=== PATIENT | female | born 1955 | race Two or more races ===

== ENCOUNTER 2022-05-10 07:36 | Emergency (ER) | payer MEDICARE, OTHER ==
[~2022-05-10] VITALS: Ht 162.6 cm; Wt 81.6 kg
[2022-05-10 08:55] LABS: Basophils # (auto) 0 10 ^3/uL (0-0.2); Basophils % (auto) 0.7 % (0.0-2.0); Eosinophils # (auto) 0 10 ^3/uL (0-0.8); Eosinophils % (auto) 0.1 % (0.0-7.0); Hematocrit 37.1 % (36.0-46.0); Hemoglobin 12.5 g/dL (12.2-16.2); Lymphocytes # (auto) 0.9 10 ^3/uL (0.4-5.4); Lymphocytes % (auto) 24.3 % (10.0-50.0); Mean Corpuscular Hemoglobin 30.3 pg (28.0-32.0); Mean Corpuscular Hgb Conc. 33.8 g/dL (32.0-36.0); Mean Corpuscular Volume 89.7 fL (80.0-100.0); Monocytes # (auto) 0.3 10 ^3/uL (0-1.3); Neutrophils # (auto) 2.5 10 ^3/uL (1.6-8.6); Neutrophils % (auto) 65.9 % (37.0-80.0); Nucleated Red Blood Cells % 0.1 %; Red Blood Cells 4.14 10^6/uL (4.0-5.20); Red Cell Distribution Width 15.4 % (11.8-14.3); White Blood Cell 3.8 10^3/uL (4.4-10.8)
[2022-05-10 09:08] LABS: Albumin 2.8 g/dL (3.4-5.0); Calcium 8.4 mg/dL (8.5-10.1); Magnesium 2.6 mg/dL (1.6-2.6); Potassium 3.9 mmol/L (3.5-5.1)
[2022-05-10 09:09] LABS: INR 3.07 (0.9-1.15); Partial Thromboplastin Time 43.2 sec (23.6-33.0)
[2022-05-10 09:16] LABS: BUN/Creatinine Ratio 28.2; Bilirubin, Total 0.6 mg/dL (0.2-1.0); Total Protein 5.9 g/dL (6.4-8.2)
[2022-05-10] MEDS ORDERED: SODIUM CHLORIDE 0.9% 1,000 ML IV ONE (10:45)
[2022-05-10] MEDS ORDERED: ASPirin 81 mg TAB PO ONE (10:45)
[2022-05-10 11:24] LABS: Urine Bacteria NONE SEEN /hpf (None Seen); Urine Blood Negative /uL (Negative); Urine Specific Gravity 1.017 (1.001-1.035); Urine WBC 2 /hpf (0 - 5)
[2022-05-10 13:00] VITALS: BP 107/51
== END 2022-05-10 14:11 | disposition home or self-care (01) ==
LOC: ER 07:36
DX: R07.89 Other chest pain (principal); T65.91XA Toxic effect of unspecified substance, accidental (unintentional), initial encounter; E44.0 Moderate protein-calorie malnutrition; E11.9 Type 2 diabetes mellitus without complications; I11.0 Hypertensive heart disease with heart failure; I50.9 Heart failure, unspecified; I48.20 Chronic atrial fibrillation, unspecified; Z95.0 Presence of cardiac pacemaker; Z68.30 Body mass index [BMI] 30.0-30.9, adult; Y92.89 Other specified places as the place of occurrence of the external cause
CPT/HCPCS: 36415; 71045; 80053; 81001; 82962; 83735; 83880; 84443; 84484; 85025; 85379; 85610; 85730; 93005; 96360; 96361; 99285; J7030

== ENCOUNTER → 2023-03-27 | Outpatient (CLI) | payer OTHER ==
[~2023-03-27] MED LIST: FURO1TAB31 PO; GABA100C9 PO; ISOS1TAB28 PO; METO-289 PO; OMEP20TA PO; OXYB5TAB24 PO; PARO30TA99 PO; WARF2TAB49 PO
[2023-03-27 10:50] LABS: Basophils # (auto) 0 10 ^3/uL (0-0.2); Basophils % (auto) 0.8 % (0.0-2.0); Eosinophils # (auto) 0 10 ^3/uL (0-0.8); Eosinophils % (auto) 0.1 % (0.0-7.0); Hematocrit 43.3 % (36.0-46.0); Hemoglobin 14.5 g/dL (12.2-16.2); Lymphocytes # (auto) 0.9 10 ^3/uL (0.4-5.4); Mean Corpuscular Hemoglobin 29.2 pg (28.0-32.0); Mean Corpuscular Hgb Conc. 33.6 g/dL (32.0-36.0); Mean Corpuscular Volume 87.1 fL (80.0-100.0); Monocytes # (auto) 0.4 10 ^3/uL (0-1.3); Monocytes % (auto) 8.4 % (0.0-12.0); Neutrophils % (auto) 69.7 % (37.0-80.0); Nucleated Red Blood Cells % 0.2 %; Red Blood Cells 4.97 10^6/uL (4.0-5.20); Red Cell Distribution Width 15.8 % (11.8-14.3); White Blood Cell 4.3 10^3/uL (4.4-10.8)
[2023-03-27 10:59] LABS: Urine Bacteria FEW /hpf (None Seen); Urine Blood Negative /uL (Negative); Urine Specific Gravity 1.016 (1.001-1.035); Urine WBC 8 /hpf (0 - 5)
[2023-03-27 11:42] LABS: Albumin 2.9 g/dL (3.4-5.0); Potassium 4.6 mmol/L (3.5-5.1); Uric Acid 4.8 mg/dL (2.6-6.0)
[2023-03-27 11:47] LABS: BUN/Creatinine Ratio 23.9 (10.0-20.0); Bilirubin, Total 0.6 mg/dL (0.2-1.0); Total Protein 6.4 g/dL (6.4-8.2)
== END | disposition home or self-care (01) ==
LOC: LAB 10:34
PROVIDERS: ATTEND Internal Medicine
DX: E61.2 Magnesium deficiency (principal); R68.89 Other general symptoms and signs; E79.0 Hyperuricemia without signs of inflammatory arthritis and tophaceous disease; R94.6 Abnormal results of thyroid function studies; E55.9 Vitamin D deficiency, unspecified; R82.998 Other abnormal findings in urine; R82.79 Other abnormal findings on microbiological examination of urine; D51.9 Vitamin B12 deficiency anemia, unspecified; R82.90 Unspecified abnormal findings in urine; E78.49 Other hyperlipidemia; R73.09 Other abnormal glucose
CPT/HCPCS: 36415; 80053; 80061; 81001; 82306; 82607; 83036; 83735; 84443; 84550; 85025; 87086

== ENCOUNTER → 2023-06-29 | Outpatient (CLI) | payer OTHER ==
[~2023-06-29] MED LIST changes: +GABA-1308 PO; -GABA100C9 PO; -WARF2TAB49 PO; +WARF4TAB69 PO
[2023-06-29 12:30] LABS: Basophils # (auto) 0 10 ^3/uL (0-0.2); Basophils % (auto) 0.7 % (0.0-2.0); Eosinophils # (auto) 0 10 ^3/uL (0-0.8); Eosinophils % (auto) 0.2 % (0.0-7.0); Hematocrit 43.3 % (36.0-46.0); Lymphocytes # (auto) 0.9 10 ^3/uL (0.4-5.4); Mean Corpuscular Hemoglobin 28.9 pg (28.0-32.0); Mean Corpuscular Hgb Conc. 32.4 g/dL (32.0-36.0); Mean Corpuscular Volume 89.2 fL (80.0-100.0); Monocytes # (auto) 0.3 10 ^3/uL (0-1.3); Monocytes % (auto) 7.8 % (0.0-12.0); Neutrophils % (auto) 70.3 % (37.0-80.0); Nucleated Red Blood Cells % 0.1 %; Red Blood Cells 4.85 10^6/uL (4.0-5.20); Red Cell Distribution Width 16.5 % (11.8-14.3); White Blood Cell 4.2 10^3/uL (4.4-10.8)
[2023-06-29 12:50] LABS: Urine Bacteria FEW /hpf (None Seen); Urine Blood Negative /uL (Negative); Urine Specific Gravity 1.017 (1.001-1.035); Urine WBC 34 /hpf (0 - 5)
[2023-06-29 13:08] LABS: Potassium 4.5 mmol/L (3.5-5.1)
[2023-06-29 13:15] LABS: Albumin 2.9 g/dL (3.4-5.0); BUN/Creatinine Ratio 22.6 (10.0-20.0); Bilirubin, Total 0.7 mg/dL (0.2-1.0); Calcium 8.4 mg/dL (8.5-10.1); Magnesium 2.2 mg/dL (1.6-2.6); Total Protein 6.4 g/dL (6.4-8.2); Uric Acid 4.7 mg/dL (2.6-6.0)
[2023-06-29 13:35] LABS: Folate (Folic Acid) > 24.00 ng/mL (5.38-24)
== END | disposition home or self-care (01) ==
LOC: LAB 12:02
PROVIDERS: ATTEND Internal Medicine
DX: E78.41 Elevated Lipoprotein(a) (principal); R68.89 Other general symptoms and signs; R73.09 Other abnormal glucose; E61.2 Magnesium deficiency; R94.6 Abnormal results of thyroid function studies; E79.0 Hyperuricemia without signs of inflammatory arthritis and tophaceous disease; R82.991 Hypocitraturia; R82.90 Unspecified abnormal findings in urine; E55.9 Vitamin D deficiency, unspecified; R82.79 Other abnormal findings on microbiological examination of urine; D51.9 Vitamin B12 deficiency anemia, unspecified
CPT/HCPCS: 36415; 80053; 80061; 81001; 82306; 82607; 82746; 83036; 83735; 84443; 84550; 85025; 87086

== ENCOUNTER → 2023-09-10 | Outpatient (CLI) | payer OTHER ==
[2023-09-10 13:58] LABS: Basophils # (auto) 0 10 ^3/uL (0-0.2); Basophils % (auto) 0.5 % (0.0-2.0); Eosinophils # (auto) 0 10 ^3/uL (0-0.8); Eosinophils % (auto) 0.1 % (0.0-7.0); Hematocrit 42.9 % (36.0-46.0); Hemoglobin 14.1 g/dL (12.2-16.2); Lymphocytes # (auto) 0.9 10 ^3/uL (0.4-5.4); Lymphocytes % (auto) 17.3 % (10.0-50.0); Mean Corpuscular Hemoglobin 29.2 pg (28.0-32.0); Mean Corpuscular Hgb Conc. 32.8 g/dL (32.0-36.0); Monocytes # (auto) 0.5 10 ^3/uL (0-1.3); Monocytes % (auto) 9.5 % (0.0-12.0); Neutrophils # (auto) 3.6 10 ^3/uL (1.6-8.6); Neutrophils % (auto) 72.6 % (37.0-80.0); Nucleated Red Blood Cells % 0.5 %; Red Blood Cells 4.82 10^6/uL (4.0-5.20); Red Cell Distribution Width 15.8 % (11.8-14.3)
[2023-09-10 14:22] LABS: Alanine Aminotransferase 32 U/L (7-40); Albumin 3.7 g/dL (3.2-4.8); Alkaline Phosphatase 91 U/L (46-116); Anion Gap 1 (5-15); Aspartate Aminotransferase 16 U/L (13-40); Bilirubin, Direct 0.3 mg/dL (<0.3); Blood Urea Nitrogen 15 mg/dL (9-23); Carbon Dioxide 33 mmol/L (20-30); Chloride 108 mmol/L (98-107); Cholesterol 155 mg/dL (< 200); Glucose 76 mg/dL (74-106); HDL Cholesterol 50 mg/dL (40-59); LDL Cholesterol 84 mg/dL (< 100); Potassium 4.4 mmol/L (3.5-5.1); Sodium 142 mmol/L (136-145); Total Protein 6.2 g/dL (5.7-8.2); Triglycerides 100 mg/dL (< 150)
[2023-09-10 14:26] LABS: Folate (Folic Acid) 14.98 ng/mL (>5.38)
[2023-09-10 14:40] LABS: Urine Bacteria FEW /hpf (None Seen); Urine Blood 1+ /uL (Negative); Urine Clarity HAZY (Clear); Urine Color Yellow (Yellow); Urine Mucus FEW (None Seen); Urine Protein, UAD 2+ (Negative); Urine WBC 81 /hpf (0 - 5)
[2023-09-10 14:55] LABS: INR 1.97 (0.9-1.15); Partial Thromboplastin Time 39.4 SEC (24.5-34.5); Prothrombin Time 19.8 sec (9.3-11.8)
[2023-09-10 15:05] LABS: Uric Acid 4.6 mg/dL (3.1-7.8)
[2023-09-10 15:06] LABS: Magnesium 1.8 mg/dL (1.6-2.6)
== END | disposition home or self-care (01) ==
LOC: LAB 13:41
PROVIDERS: ATTEND Specialist
DX: E11.8 Type 2 diabetes mellitus with unspecified complications (principal); I10 Essential (primary) hypertension; E78.5 Hyperlipidemia, unspecified; R94.5 Abnormal results of liver function studies; D64.9 Anemia, unspecified; E03.9 Hypothyroidism, unspecified; E61.2 Magnesium deficiency; E79.0 Hyperuricemia without signs of inflammatory arthritis and tophaceous disease; R94.6 Abnormal results of thyroid function studies; R82.998 Other abnormal findings in urine; D51.9 Vitamin B12 deficiency anemia, unspecified; E55.9 Vitamin D deficiency, unspecified; R82.79 Other abnormal findings on microbiological examination of urine; E78.49 Other hyperlipidemia; R68.89 Other general symptoms and signs; R78.89 Finding of other specified substances, not normally found in blood
CPT/HCPCS: 36415; 80053; 80061; 80076; 81001; 82306; 82607; 82746; 83036; 83735; 84443; 84550; 85025; 85610; 85730; 87086

== ENCOUNTER → 2023-11-06 | Outpatient (CLI) | payer OTHER ==
[2023-11-06 10:13] LABS: Basophils # (auto) 0 10 ^3/uL (0-0.2); Basophils % (auto) 0.4 % (0.0-2.0); Eosinophils # (auto) 0 10 ^3/uL (0-0.8); Eosinophils % (auto) 0.1 % (0.0-7.0); Hematocrit 41.5 % (36.0-46.0); Hemoglobin 13.5 g/dL (12.2-16.2); Lymphocytes # (auto) 0.9 10 ^3/uL (0.4-5.4); Lymphocytes % (auto) 20.6 % (10.0-50.0); Mean Corpuscular Hemoglobin 29.4 pg (28.0-32.0); Mean Corpuscular Hgb Conc. 32.5 g/dL (32.0-36.0); Mean Corpuscular Volume 90.5 fL (80.0-100.0); Monocytes # (auto) 0.3 10 ^3/uL (0-1.3); Monocytes % (auto) 7.3 % (0.0-12.0); Neutrophils # (auto) 3.3 10 ^3/uL (1.6-8.6); Neutrophils % (auto) 71.6 % (37.0-80.0); Nucleated Red Blood Cells % 0.2 %; Red Blood Cells 4.59 10^6/uL (4.0-5.20); Red Cell Distribution Width 16.5 % (11.8-14.3); White Blood Cell 4.6 10^3/uL (4.4-10.8)
[2023-11-06 10:47] LABS: Alanine Aminotransferase 59 U/L (7-40); Albumin 3.7 g/dL (3.2-4.8); Alkaline Phosphatase 94 U/L (46-116); Anion Gap 4 (5-15); Aspartate Aminotransferase 34 U/L (13-40); BUN/Creatinine Ratio 21.1 (10.0-20.0); Blood Urea Nitrogen 16 mg/dL (9-23); Carbon Dioxide 32 mmol/L (20-30); Chloride 107 mmol/L (98-107); Glucose 97 mg/dL (74-106); LDL Cholesterol 86 mg/dL (< 100); Potassium 4.2 mmol/L (3.5-5.1); Sodium 143 mmol/L (136-145); Triglycerides 116 mg/dL (< 150)
[2023-11-06 10:48] LABS: Bilirubin, Direct 0.2 mg/dL (<0.3); Bilirubin, Total 0.7 mg/dL (0.2-1.0); Cholesterol 159 mg/dL (< 200); HDL Cholesterol 53 mg/dL (40-59); Total Protein 6.1 g/dL (5.7-8.2)
[2023-11-06 12:58] LABS: INR 3.41 (0.9-1.15)
== END | disposition home or self-care (01) ==
LOC: LAB 09:32
PROVIDERS: ATTEND Specialist
DX: E11.8 Type 2 diabetes mellitus with unspecified complications (principal); I10 Essential (primary) hypertension; R94.5 Abnormal results of liver function studies; D64.9 Anemia, unspecified; E03.9 Hypothyroidism, unspecified; E55.9 Vitamin D deficiency, unspecified; E78.5 Hyperlipidemia, unspecified; R79.1 Abnormal coagulation profile
CPT/HCPCS: 36415; 80053; 80061; 80076; 82306; 83036; 84443; 85025; 85610

== ENCOUNTER → 2023-11-16 | Outpatient (CLI) | payer OTHER ==
[2023-11-16 13:12] LABS: Alanine Aminotransferase 45 U/L (7-40); Albumin 3.8 g/dL (3.2-4.8); Alkaline Phosphatase 96 U/L (46-116); Anion Gap 3 (5-15); Aspartate Aminotransferase 25 U/L (13-40); BUN/Creatinine Ratio 21.7 (10.0-20.0); Blood Urea Nitrogen 18 mg/dL (9-23); Calcium 9.3 mg/dL (8.5-10.1); Carbon Dioxide 32 mmol/L (20-30); Chloride 107 mmol/L (98-107); Glucose 91 mg/dL (74-106); LDL Cholesterol 95 mg/dL (< 100); Potassium 4.9 mmol/L (3.5-5.1); Sodium 142 mmol/L (136-145); Triglycerides 95 mg/dL (< 150)
[2023-11-16 13:13] LABS: Cholesterol 168 mg/dL (< 200); HDL Cholesterol 55 mg/dL (40-59); Total Protein 6.3 g/dL (5.7-8.2)
== END | disposition home or self-care (01) ==
LOC: LAB 11:58
PROVIDERS: ATTEND Specialist
DX: I10 Essential (primary) hypertension (principal); R94.5 Abnormal results of liver function studies; D64.9 Anemia, unspecified; E11.8 Type 2 diabetes mellitus with unspecified complications; E03.9 Hypothyroidism, unspecified; E78.5 Hyperlipidemia, unspecified
CPT/HCPCS: 36415; 80053; 80061

== ENCOUNTER → 2023-12-29 | Outpatient (CLI) | payer OTHER ==
[2023-12-29 13:07] LABS: INR 1.79 (0.9-1.15); Partial Thromboplastin Time 36.8 SEC (24.5-34.5); Prothrombin Time 18.1 sec (9.3-11.8)
== END | disposition home or self-care (01) ==
LOC: LAB 12:16
PROVIDERS: ATTEND Internal Medicine
DX: D68.32 Hemorrhagic disorder due to extrinsic circulating anticoagulants (principal); R79.9 Abnormal finding of blood chemistry, unspecified; R78.1 Finding of opiate drug in blood
CPT/HCPCS: 36415; 85610; 85730

== ENCOUNTER 2024-01-08 06:55 | Day surgery (SDC) | payer OTHER ==
[2024-01-06 12:19] LABS: Basophils # (auto) 0 10 ^3/uL (0-0.2); Basophils % (auto) 0.4 % (0.0-2.0); Eosinophils # (auto) 0 10 ^3/uL (0-0.8); Eosinophils % (auto) 0.1 % (0.0-7.0); Hematocrit 42.5 % (36.0-46.0); Hemoglobin 13.8 g/dL (12.2-16.2); Lymphocytes % (auto) 17.7 % (10.0-50.0); Mean Corpuscular Hemoglobin 29.1 pg (28.0-32.0); Mean Corpuscular Hgb Conc. 32.4 g/dL (32.0-36.0); Monocytes # (auto) 0.4 10 ^3/uL (0-1.3); Monocytes % (auto) 7.3 % (0.0-12.0); Neutrophils # (auto) 4.2 10 ^3/uL (1.6-8.6); Neutrophils % (auto) 74.5 % (37.0-80.0); Nucleated Red Blood Cells % 0.1 %; Red Blood Cells 4.72 10^6/uL (4.0-5.20); Red Cell Distribution Width 15.2 % (11.8-14.3); White Blood Cell 5.7 10^3/uL (4.4-10.8)
[2024-01-06 12:48] LABS: Anion Gap 4 (5-15); Carbon Dioxide 31 mmol/L (20-30); Chloride 106 mmol/L (98-107); Potassium 4.7 mmol/L (3.5-5.1); Sodium 141 mmol/L (136-145)
[2024-01-06 12:49] LABS: Calcium 8.8 mg/dL (8.5-10.1)
[2024-01-06 12:50] LABS: Urine Bacteria MANY /hpf (None Seen); Urine Blood Negative /uL (Negative); Urine Clarity Clear (Clear); Urine Color Colorless (Yellow); Urine Protein, UAD TRACE (Negative); Urine Urobilinogen Normal (Negative); Urine WBC 10 /hpf (0 - 5)
[2024-01-06 12:54] LABS: BUN/Creatinine Ratio 18.4 (10.0-20.0); Blood Urea Nitrogen 16 mg/dL (9-23); Glucose 166 mg/dL (74-106)
[2024-01-06 12:58] LABS: INR 1.59 (0.9-1.15); Partial Thromboplastin Time 42.3 SEC (24.5-34.5); Prothrombin Time 16.2 sec (9.3-11.8)
[~2024-01-08] VITALS: Ht 162.6 cm; Wt 86.6 kg
[2024-01-08] VITALS (7 sets, daily range): BP systolic 140–156; BP diastolic 60–77; PULSE 64–78; RESP 12–20; O2SAT 92–97
[~2024-01-08 06:55] MED LIST changes: +ASPI-543 PO; +ATOR-47 PO; +DULA3INJ SC; +ENOX80IN SC; +INSLISPI SC; +INSU1.2I SC; +ISOS10TA5 PO; -ISOS1TAB28 PO; +NITR0.4S29 SL; +WARF-110 PO; -WARF4TAB69 PO; +WARF4TAB70 PO
[2024-01-08] MEDS ORDERED: LIDOCAINE 2%HCL (LOCAL ANESTH.) INJ 20ML MDV ONE (07:53)
[2024-01-08] MEDS ORDERED: IOHEXOL 350 MG/ML 100ML IJ ONE (07:54)
[2024-01-08] MEDS ORDERED: MIDAZOLAM HCL 2MG/2ML 2ml VIAL (1mg/ml) ONE (08:16)
[2024-01-08] MEDS ORDERED: fentaNYL CITRATE 100 MCG/2 ML VL ONE (08:16)
[2024-01-08] MEDS ORDERED: VANCOMYCIN 1GM/200ML 200 ML IV ONE (08:25)
[2024-01-08] MEDS ORDERED: VANCOMYCIN HCL 1000 MG VL ONE (08:25)
[2024-01-08] MEDS: DOXYCYCLINE 100 MG TAB/CAP ONE (10:12)
[2024-01-08] MEDS: DOXYCYCLINE 100 MG TAB/CAP PO ONE (10:20)
[2024-01-08] MEDS: HYDROmorphone HCL 2 MG/ML VL/or syr IV ONE (10:22)
== END 2024-01-08 14:14 | disposition home or self-care (01) ==
LOC: CATH 06:55
PROVIDERS: ATTEND Specialist
DX: Z45.010 Encounter for checking and testing of cardiac pacemaker pulse generator [battery] (principal); T82.111A Breakdown (mechanical) of cardiac pulse generator (battery), initial encounter; I49.5 Sick sinus syndrome; I48.19 Other persistent atrial fibrillation; I10 Essential (primary) hypertension; E11.9 Type 2 diabetes mellitus without complications; I11.0 Hypertensive heart disease with heart failure; I50.9 Heart failure, unspecified; G47.30 Sleep apnea, unspecified; Y83.8 Other surgical procedures as the cause of abnormal reaction of the patient, or of later complication, without mention of misadventure at the time of the procedure; Z95.5 Presence of coronary angioplasty implant and graft; Z80.3 Family history of malignant neoplasm of breast; Z91.041 Radiographic dye allergy status; Z79.82 Long term (current) use of aspirin; Z87.891 Personal history of nicotine dependence; Z79.4 Long term (current) use of insulin; Z79.84 Long term (current) use of oral hypoglycemic drugs; Z79.899 Other long term (current) drug therapy; Z98.890 Other specified postprocedural states
CPT/HCPCS: 33227; 36415; 80048; 81001; 85025; 85610; 85730; J1170; J2250; J3010; J3370; J7030; Q9967; 99152

== ENCOUNTER 2024-01-21 04:08 | Inpatient (IN) | payer OTHER ==
[~2024-01-21] VITALS: Ht 162.6 cm; Wt 89.4 kg
[~2024-01-21 04:08] MED LIST changes: -ENOX80IN SC
[2024-01-21 04:38] LABS: Basophils # (auto) 0 10 ^3/uL (0-0.2); Basophils % (auto) 0.8 % (0.0-2.0); Eosinophils # (auto) 0 10 ^3/uL (0-0.8); Eosinophils % (auto) 0.1 % (0.0-7.0); Hematocrit 40.5 % (36.0-46.0); Hemoglobin 13.1 g/dL (12.2-16.2); Lymphocytes # (auto) 1.3 10 ^3/uL (0.4-5.4); Lymphocytes % (auto) 27.1 % (10.0-50.0); Mean Corpuscular Hemoglobin 29.1 pg (28.0-32.0); Mean Corpuscular Hgb Conc. 32.4 g/dL (32.0-36.0); Mean Corpuscular Volume 89.9 fL (80.0-100.0); Monocytes # (auto) 0.4 10 ^3/uL (0-1.3); Monocytes % (auto) 7.8 % (0.0-12.0); Neutrophils # (auto) 3.2 10 ^3/uL (1.6-8.6); Neutrophils % (auto) 64.2 % (37.0-80.0); Red Cell Distribution Width 15.4 % (11.8-14.3); White Blood Cell 4.9 10^3/uL (4.4-10.8)
[2024-01-21 04:55] LABS: Alanine Aminotransferase 39 U/L (7-40); Albumin 3.4 g/dL (3.2-4.8); Alkaline Phosphatase 94 U/L (46-116); Anion Gap 4 (5-15); Aspartate Aminotransferase 29 U/L (13-40); BUN/Creatinine Ratio 20.3 (10.0-20.0); Blood Urea Nitrogen 15 mg/dL (9-23); Calcium 8.3 mg/dL (8.7-10.4); Carbon Dioxide 29 mmol/L (20-30); Chloride 106 mmol/L (98-107); Glucose 175 mg/dL (74-106); Potassium 3.5 mmol/L (3.5-5.1); Sodium 139 mmol/L (136-145)
[2024-01-21 04:56] LABS: Bilirubin, Total 0.5 mg/dL (0.2-1.0); Total Protein 5.8 g/dL (5.7-8.2)
[2024-01-21 08:00] VITALS: PULSE 74; RESP 15; O2SAT 93
[2024-01-21 08:03] LABS: INR 1.32 (0.9-1.15); Prothrombin Time 13.6 sec (9.3-11.8)
[2024-01-21] MEDS ORDERED: MORPHINE SULFATE INJ 2 MG/ml SYRG IV PRN (09:30)
[2024-01-21] MEDS ORDERED: NITROGLYCERIN 0.4 MG SL TAB SL SCH (09:30)
[2024-01-21] MEDS ORDERED: NITROGLYCERIN 0.4 MG SL TAB SL PRN (09:30)
[2024-01-21] MEDS ORDERED: ACETAMINOPHEN 325 MG TAB PO PRN (09:30)
[2024-01-21] MEDS ORDERED: DEXTROSE (50%) 50ML SYRG IV PRN (09:30)
[2024-01-21] MEDS: ASPirin-EC 81 mg tab PO SCH (11:08)
[2024-01-21] MEDS: GABAPENTIN 100 MG CAP PO SCH (11:08)
[2024-01-21] MEDS: METOPROLOL SUCCINATE XL 50 MG TAB PO SCH (11:09)
[2024-01-21] MEDS: FUROSEMIDE 40 MG TAB PO SCH (11:10)
[2024-01-21] MEDS: InsuLIN REG 1unit/0.01ml Soln (100units/ml) SC SCH (11:12)
[2024-01-21] MEDS: ACCU-CHEK COMFORT CURVE STRIP VI SCH (11:12)
[2024-01-21] MEDS: Oxybutynin Chloride (Ditropan Xl) 5 MG PO SCH (14:07)
[2024-01-21 17:48] VITALS: RESP 18; O2SAT 98
[2024-01-21 20:00] VITALS: PULSE 84; RESP 20; O2SAT 93
[2024-01-21] MEDS: ATORVASTATIN 20 MG TAB PO SCH (21:46)
[2024-01-21] MEDS: ISOSORBIDE MONONITRATE 20 MG TAB PO SCH (21:50)
[2024-01-21 22:00] VITALS: BP 149/74; PULSE 84; TEMP 98; O2SAT 93
[2024-01-22 05:00] VITALS: BP 129/63; PULSE 79; RESP 18; TEMP 96.5; O2SAT 97
[2024-01-22 06:53] LABS: Alanine Aminotransferase 26 U/L (7-40); Albumin 3.2 g/dL (3.2-4.8); Alkaline Phosphatase 85 U/L (46-116); Anion Gap 5 (5-15); Aspartate Aminotransferase 22 U/L (13-40); BUN/Creatinine Ratio 20.9 (10.0-20.0); Bilirubin, Total 0.8 mg/dL (0.2-1.0); Blood Urea Nitrogen 14 mg/dL (9-23); Calcium 8.7 mg/dL (8.5-10.1); Carbon Dioxide 30 mmol/L (20-30); Chloride 108 mmol/L (98-107); Glucose 89 mg/dL (74-106); Potassium 3.6 mmol/L (3.5-5.1); Sodium 143 mmol/L (136-145)
[2024-01-22 06:54] LABS: Total Protein 5.5 g/dL (5.7-8.2)
[2024-01-22 06:57] LABS: Basophils # (auto) 0.1 10 ^3/uL (0-0.2); Basophils % (auto) 1.2 % (0.0-2.0); Eosinophils # (auto) 0 10 ^3/uL (0-0.8); Eosinophils % (auto) 0.9 % (0.0-7.0); Hematocrit 39.3 % (36.0-46.0); Hemoglobin 12.9 g/dL (12.2-16.2); Lymphocytes # (auto) 1.2 10 ^3/uL (0.4-5.4); Lymphocytes % (auto) 25.7 % (10.0-50.0); Mean Corpuscular Hemoglobin 29.5 pg (28.0-32.0); Mean Corpuscular Hgb Conc. 32.8 g/dL (32.0-36.0); Mean Corpuscular Volume 89.9 fL (80.0-100.0); Monocytes # (auto) 0.4 10 ^3/uL (0-1.3); Monocytes % (auto) 7.4 % (0.0-12.0); Neutrophils # (auto) 3.1 10 ^3/uL (1.6-8.6); Neutrophils % (auto) 64.8 % (37.0-80.0); Nucleated Red Blood Cells % 0.3 %; Red Blood Cells 4.38 10^6/uL (4.0-5.20); Red Cell Distribution Width 15.8 % (11.8-14.3); White Blood Cell 4.8 10^3/uL (4.4-10.8)
[2024-01-22 07:54] VITALS: PULSE 84; RESP 20; O2SAT 93
[2024-01-22 08:00] VITALS: PULSE 77
[2024-01-22 08:34] LABS: Urine Bacteria NONE SEEN /hpf (None Seen); Urine Blood Negative /uL (Negative); Urine Clarity Clear (Clear); Urine Color Colorless (Yellow); Urine Protein, UAD 1+ (Negative); Urine Specific Gravity 1.014 (1.001-1.035); Urine Urobilinogen Normal (Negative); Urine WBC 1 /hpf (0 - 5)
[2024-01-22 08:44] LABS: Amphetamine Screen, Urine Neg (NEGATIVE); Barbiturate Scree,Urine Neg (NEGATIVE); Benzodiazephine Screen, Urine Neg (NEGATIVE); Cannabinoid Screen, Urine Neg (NEGATIVE); Cocaine Screen, Urine Neg (NEGATIVE); Opiate Scree,Urine Neg (NEGATIVE); Phencyclidine Screen, Urine Neg (NEGATIVE)
[2024-01-22 08:55] VITALS: BP 114/68; PULSE 79; RESP 18; TEMP 97.3; O2SAT 96
[2024-01-22] MEDS: PANTOPRAZOLE 40 MG TAB PO SCH (09:47)
[2024-01-22] MEDS: PARoxetine 20 MG TAB PO SCH (09:49)
[2024-01-22 11:18] VITALS: BP 114/68; PULSE 79; TEMP 36.3
== END 2024-01-22 12:30 | disposition home or self-care (01) | DRG 309 ==
LOC: ER 04:08 → TELE 09:25 → TELE-WESTW 17:53
PROVIDERS: ADMIT Internal Medicine; ATTEND Internal Medicine
PROC: 4B02XSZ Measurement of Cardiac Pacemaker, External Approach (ICD-10-PCS; principal; 2024-01-22)
DX: I48.91 Unspecified atrial fibrillation (principal); I50.42 Chronic combined systolic (congestive) and diastolic (congestive) heart failure; I11.0 Hypertensive heart disease with heart failure; E66.01 Morbid (severe) obesity due to excess calories; E11.65 Type 2 diabetes mellitus with hyperglycemia; K21.9 Gastro-esophageal reflux disease without esophagitis; I25.10 Atherosclerotic heart disease of native coronary artery without angina pectoris; E11.40 Type 2 diabetes mellitus with diabetic neuropathy, unspecified; I25.2 Old myocardial infarction; Z79.01 Long term (current) use of anticoagulants; Z79.4 Long term (current) use of insulin; Z79.899 Other long term (current) drug therapy; Z68.33 Body mass index [BMI] 33.0-33.9, adult; Z91.041 Radiographic dye allergy status; Z95.2 Presence of prosthetic heart valve; Z80.3 Family history of malignant neoplasm of breast
CPT/HCPCS: 36415; 71045; 80053; 80307; 81001; 83880; 84443; 84484; 85025; 85610; 87040; 93005; 93306; G0378; J1815

== ENCOUNTER → 2024-02-12 | Outpatient (CLI) | payer OTHER ==
[2024-02-12 12:47] LABS: Basophils # (auto) 0 10 ^3/uL (0-0.2); Basophils % (auto) 0.6 % (0.0-2.0); Eosinophils # (auto) 0 10 ^3/uL (0-0.8); Eosinophils % (auto) 0.1 % (0.0-7.0); Hemoglobin 13.7 g/dL (12.2-16.2); Lymphocytes # (auto) 0.9 10 ^3/uL (0.4-5.4); Mean Corpuscular Hemoglobin 29.1 pg (28.0-32.0); Mean Corpuscular Hgb Conc. 32.7 g/dL (32.0-36.0); Mean Corpuscular Volume 88.9 fL (80.0-100.0); Monocytes # (auto) 0.4 10 ^3/uL (0-1.3); Monocytes % (auto) 9.7 % (0.0-12.0); Neutrophils # (auto) 3.2 10 ^3/uL (1.6-8.6); Neutrophils % (auto) 70.6 % (37.0-80.0); Nucleated Red Blood Cells % 0.1 %; Red Blood Cells 4.72 10^6/uL (4.0-5.20); Red Cell Distribution Width 14.9 % (11.8-14.3); White Blood Cell 4.5 10^3/uL (4.4-10.8)
[2024-02-12 13:11] LABS: Alanine Aminotransferase 41 U/L (7-40); Albumin 3.5 g/dL (3.2-4.8); Alkaline Phosphatase 101 U/L (46-116); Anion Gap 2 (5-15); Aspartate Aminotransferase 28 U/L (13-40); Blood Urea Nitrogen 22 mg/dL (9-23); Calcium 8.9 mg/dL (8.5-10.1); Carbon Dioxide 33 mmol/L (20-30); Chloride 106 mmol/L (98-107); Cholesterol 159 mg/dL (< 200); Glucose 96 mg/dL (74-106); LDL Cholesterol 91 mg/dL (< 100); Potassium 4.4 mmol/L (3.5-5.1); Sodium 141 mmol/L (136-145); Triglycerides 114 mg/dL (< 150)
[2024-02-12 13:12] LABS: Bilirubin, Direct 0.3 mg/dL (<0.3); Bilirubin, Total 0.9 mg/dL (0.2-1.0); HDL Cholesterol 50 mg/dL (40-59); Total Protein 5.8 g/dL (5.7-8.2)
== END | disposition home or self-care (01) ==
LOC: LAB 12:01
PROVIDERS: ATTEND Specialist
DX: I10 Essential (primary) hypertension (principal); R68.89 Other general symptoms and signs; E11.9 Type 2 diabetes mellitus without complications; E03.9 Hypothyroidism, unspecified; D64.9 Anemia, unspecified; E78.5 Hyperlipidemia, unspecified
CPT/HCPCS: 36415; 80053; 80061; 82248; 85025

== ENCOUNTER → 2024-03-18 | Outpatient (CLI) | payer OTHER ==
[~2024-03-18] MED LIST changes: +PARO-181 PO; -PARO30TA99 PO
[2024-03-18 13:57] LABS: INR 2.69 (0.9-1.15); Partial Thromboplastin Time 45.7 SEC (24.5-34.5); Prothrombin Time 26.5 sec (9.3-11.8)
== END | disposition home or self-care (01) ==
LOC: LAB 13:18
PROVIDERS: ATTEND Internal Medicine
DX: Z79.01 Long term (current) use of anticoagulants (principal)
CPT/HCPCS: 36415; 85610; 85730

== ENCOUNTER → 2024-04-04 | Outpatient (CLI) | payer OTHER ==
[2024-04-04 12:55] LABS: Creatinine, Urine 38.02 mg/dL (30.0-125.0)
[2024-04-04 15:30] LABS: Body Surface Area 1.93
[2024-04-04 15:34] LABS: Creatinine Clearance, Urine 35.62 mL/min (75-115)
== END | disposition home or self-care (01) ==
LOC: LAB 12:15
PROVIDERS: ATTEND Internal Medicine
DX: E11.9 Type 2 diabetes mellitus without complications (principal)
CPT/HCPCS: 82575

== ENCOUNTER → 2024-04-14 | Outpatient (CLI) | payer OTHER ==
[2024-04-14 10:32] LABS: Creatinine, Urine 125.14 mg/dL (30.0-125.0)
[2024-04-14 10:34] LABS: Alanine Aminotransferase 33 U/L (7-40); Alkaline Phosphatase 96 U/L (46-116); Anion Gap 2 (5-15); Blood Urea Nitrogen 18 mg/dL (9-23); Calcium 9.1 mg/dL (8.5-10.1); Carbon Dioxide 33 mmol/L (20-30); Chloride 106 mmol/L (98-107); Glucose 146 mg/dL (74-106); LDL Cholesterol 93 mg/dL (< 100); Potassium 4.7 mmol/L (3.5-5.1); Sodium 141 mmol/L (136-145); Triglycerides 100 mg/dL (< 150)
[2024-04-14 10:35] LABS: Albumin 3.6 g/dL (3.2-4.8); Aspartate Aminotransferase 24 U/L (13-40); Bilirubin, Total 0.8 mg/dL (0.2-1.0); Cholesterol 168 mg/dL (< 200); HDL Cholesterol 53 mg/dL (40-59)
[2024-04-14 10:36] LABS: Total Protein 6.1 g/dL (5.7-8.2)
== END | disposition home or self-care (01) ==
LOC: LAB 09:39
PROVIDERS: ATTEND Internal Medicine Endocrinology, Diabetes & Metabolism
DX: E11.65 Type 2 diabetes mellitus with hyperglycemia (principal)
CPT/HCPCS: 36415; 80053; 80061; 82043; 82570; 83036

== ENCOUNTER → 2024-06-01 | Outpatient (CLI) | payer OTHER ==
[2024-06-01 11:26] LABS: Urine Bacteria FEW /hpf (None Seen); Urine Blood Negative /uL (Negative); Urine Clarity Turbid (Clear); Urine Color Light-Yellow (Yellow); Urine Mucus FEW (None Seen); Urine Protein, UAD 1+ (Negative); Urine Specific Gravity 1.019 (1.001-1.035); Urine Urobilinogen 2 mg/dL (Negative); Urine WBC 15 /hpf (0 - 5); Urine pH 5.5 (5.0-9.0)
== END | disposition home or self-care (01) ==
LOC: LAB 11:04
PROVIDERS: ATTEND Internal Medicine
DX: E11.21 Type 2 diabetes mellitus with diabetic nephropathy (principal); E21.3 Hyperparathyroidism, unspecified; E11.22 Type 2 diabetes mellitus with diabetic chronic kidney disease; R80.9 Proteinuria, unspecified; N39.0 Urinary tract infection, site not specified; D63.1 Anemia in chronic kidney disease; N18.30 Chronic kidney disease, stage 3 unspecified; M10.9 Gout, unspecified; E55.9 Vitamin D deficiency, unspecified
CPT/HCPCS: 81001; 87086; 87088; 87186

== ENCOUNTER → 2024-06-27 | Outpatient (CLI) | payer OTHER ==
[2024-06-27 12:19] LABS: Chloride 108 mmol/L (98-107); Potassium 4.4 mmol/L (3.5-5.1); Sodium 141 mmol/L (136-145)
[2024-06-27 12:20] LABS: Anion Gap 2 (5-15); Calcium 8.9 mg/dL (8.7-10.4); Carbon Dioxide 31 mmol/L (20-30)
[2024-06-27 12:23] LABS: INR 2.36 (0.9-1.15); Prothrombin Time 23.5 sec (9.3-11.8)
[2024-06-27 12:25] LABS: BUN/Creatinine Ratio 23.8 (10.0-20.0); Blood Urea Nitrogen 19 mg/dL (9-23); Glucose 110 mg/dL (74-106)
[2024-06-27 13:17] LABS: Creatinine, Urine 64.8 mg/dL (30.0-125.0)
== END | disposition home or self-care (01) ==
LOC: LAB 11:40
PROVIDERS: ATTEND Internal Medicine
DX: Z13.228 Encounter for screening for other metabolic disorders (principal); I10 Essential (primary) hypertension; E11.21 Type 2 diabetes mellitus with diabetic nephropathy; E11.69 Type 2 diabetes mellitus with other specified complication; Z79.01 Long term (current) use of anticoagulants
CPT/HCPCS: 36415; 80048; 82043; 82570; 83036; 85610

== ENCOUNTER → 2024-08-12 | Outpatient (CLI) | payer OTHER ==
[2024-08-12 12:04] LABS: INR 3.21 (0.9-1.15); Prothrombin Time 31.2 sec (9.3-11.8)
[2024-08-12 12:13] LABS: Albumin 3.7 g/dL (3.2-4.8); Alkaline Phosphatase 95 U/L (46-116); Anion Gap 2 (5-15); Aspartate Aminotransferase 29 U/L (13-40); Bilirubin, Direct 0.2 mg/dL (<0.3); Blood Urea Nitrogen 19 mg/dL (9-23); Calcium 8.8 mg/dL (8.7-10.4); Carbon Dioxide 31 mmol/L (20-30); Chloride 106 mmol/L (98-107); Glucose 115 mg/dL (74-106); Potassium 4.3 mmol/L (3.5-5.1); Sodium 139 mmol/L (136-145)
[2024-08-12 12:14] LABS: Phosphorus 2.7 mg/dL (2.4-5.1); Total Protein 5.9 g/dL (5.7-8.2)
[2024-08-12 12:32] LABS: Free T3 3.24 pg/mL (2.3-4.2)
[2024-08-12 12:33] LABS: Free T4 (Free Thyroxine) 1.08 ng/dL (0.89-1.76); T3 Total 1.25 ng/mL (0.60-1.81)
== END | disposition home or self-care (01) ==
LOC: LAB 11:01
PROVIDERS: ATTEND Internal Medicine
DX: I16.0 Hypertensive urgency (principal); I50.22 Chronic systolic (congestive) heart failure; E11.69 Type 2 diabetes mellitus with other specified complication
CPT/HCPCS: 36415; 80053; 82248; 83036; 84100; 84439; 84443; 84480; 84481; 85610

== ENCOUNTER → 2024-08-25 | Outpatient (CLI) | payer OTHER ==
[2024-08-25 13:42] LABS: INR 2.07 (0.9-1.15); Prothrombin Time 20.8 sec (9.3-11.8)
[2024-08-25 14:10] LABS: Albumin 3.8 g/dL (3.2-4.8); Bilirubin, Direct 0.2 mg/dL (<0.3)
[2024-08-25 14:11] LABS: Bilirubin, Total 0.9 mg/dL (0.2-1.0); Phosphorus 2.5 mg/dL (2.4-5.1); Total Protein 6.2 g/dL (5.7-8.2)
[2024-08-25 14:33] LABS: Free T3 2.75 pg/mL (2.3-4.2); Free T4 (Free Thyroxine) 1.15 ng/dL (0.89-1.76); T3 Total 1.26 ng/mL (0.60-1.81)
== END | disposition home or self-care (01) ==
LOC: LAB 12:47
PROVIDERS: ATTEND Internal Medicine
DX: I11.0 Hypertensive heart disease with heart failure (principal); I50.22 Chronic systolic (congestive) heart failure; E11.69 Type 2 diabetes mellitus with other specified complication
CPT/HCPCS: 36415; 80076; 83036; 84100; 84439; 84443; 84480; 84481; 85610

== ENCOUNTER → 2024-11-08 | Outpatient (CLI) | payer OTHER ==
[2024-11-08 11:56] LABS: Basophils # (auto) 0 10 ^3/uL (0-0.2); Basophils % (auto) 1.1 % (0.0-2.0); Eosinophils # (auto) 0 10 ^3/uL (0-0.8); Eosinophils % (auto) 0.1 % (0.0-7.0); Hematocrit 42.9 % (36.0-46.0); Hemoglobin 14.3 g/dL (12.2-16.2); Lymphocytes # (auto) 0.8 10 ^3/uL (0.4-5.4); Lymphocytes % (auto) 19.7 % (10.0-50.0); Mean Corpuscular Hemoglobin 30.2 pg (28.0-32.0); Mean Corpuscular Hgb Conc. 33.2 g/dL (32.0-36.0); Mean Corpuscular Volume 90.9 fL (80.0-100.0); Monocytes # (auto) 0.4 10 ^3/uL (0-1.3); Monocytes % (auto) 8.4 % (0.0-12.0); Neutrophils % (auto) 70.7 % (37.0-80.0); Nucleated Red Blood Cells % 0.1 %; Platelet Count (auto) 178 10^3/uL (140-450); Red Blood Cells 4.73 10^6/uL (4.0-5.20); Red Cell Distribution Width 15.5 % (11.8-14.3); White Blood Cell 4.3 10^3/uL (4.4-10.8)
[2024-11-08 12:22] LABS: Albumin 3.7 g/dL (3.2-4.8); Alkaline Phosphatase 102 U/L (46-116); Anion Gap 2 (5-15); Aspartate Aminotransferase 27 U/L (13-40); Blood Urea Nitrogen 23 mg/dL (9-23); Calcium 9.4 mg/dL (8.7-10.4); Carbon Dioxide 31 mmol/L (20-31); Chloride 107 mmol/L (98-107); LDL Cholesterol 95 mg/dL (< 100); Sodium 140 mmol/L (136-145); Triglycerides 105 mg/dL (< 150)
[2024-11-08 12:23] LABS: Bilirubin, Direct 0.3 mg/dL (<0.3); Bilirubin, Total 1.1 mg/dL (0.2-1.0); Cholesterol 173 mg/dL (< 200); HDL Cholesterol 56 mg/dL (40-59); Total Protein 6.2 g/dL (5.7-8.2)
[2024-11-08 12:32] LABS: Alanine Aminotransferase 45 U/L (7-40); Glucose 204 mg/dL (74-106)
== END | disposition home or self-care (01) ==
LOC: LAB 11:37
PROVIDERS: ATTEND Specialist
DX: E11.9 Type 2 diabetes mellitus without complications (principal); I10 Essential (primary) hypertension; E03.9 Hypothyroidism, unspecified; R68.89 Other general symptoms and signs; E78.5 Hyperlipidemia, unspecified; D64.9 Anemia, unspecified
CPT/HCPCS: 36415; 80053; 80061; 82248; 83036; 84443; 85025

== ENCOUNTER → 2024-12-12 | Outpatient (CLI) | payer OTHER ==
[2024-12-12 12:33] LABS: INR 3.47 (0.9-1.15); Partial Thromboplastin Time 44.9 SEC (24.5-34.5); Prothrombin Time 32.5 sec (9.3-11.8)
== END | disposition home or self-care (01) ==
LOC: LAB 11:46
PROVIDERS: ATTEND Internal Medicine
DX: Z51.81 Encounter for therapeutic drug level monitoring (principal); Z79.01 Long term (current) use of anticoagulants
CPT/HCPCS: 36415; 85610; 85730

== ENCOUNTER → 2025-02-13 | Outpatient (CLI) | payer OTHER ==
[2025-02-13 11:36] LABS: Basophils # (auto) 0 10 ^3/uL (0-0.2); Basophils % (auto) 0.8 % (0.0-2.0); Eosinophils # (auto) 0 10 ^3/uL (0-0.8); Eosinophils % (auto) 0.1 % (0.0-7.0); Hematocrit 40.8 % (36.0-46.0); Hemoglobin 13.6 g/dL (12.2-16.2); Lymphocytes # (auto) 0.9 10 ^3/uL (0.4-5.4); Lymphocytes % (auto) 20.7 % (10.0-50.0); Mean Corpuscular Hemoglobin 30.3 pg (28.0-32.0); Mean Corpuscular Hgb Conc. 33.4 g/dL (32.0-36.0); Mean Corpuscular Volume 90.7 fL (80.0-100.0); Monocytes # (auto) 0.3 10 ^3/uL (0-1.3); Neutrophils # (auto) 3.1 10 ^3/uL (1.6-8.6); Neutrophils % (auto) 71.4 % (37.0-80.0); Nucleated Red Blood Cells % 0.2 %; Platelet Count (auto) 175 10^3/uL (140-450); Red Cell Distribution Width 15.5 % (11.8-14.3); White Blood Cell 4.3 10^3/uL (4.4-10.8)
[2025-02-13 11:42] LABS: Urine Blood Negative /uL (Negative); Urine Clarity Turbid (Clear); Urine Color Light-Yellow (Yellow); Urine Protein, UAD Negative (Negative); Urine Specific Gravity 1.016 (1.001-1.035); Urine Urobilinogen Normal (Negative); Urine pH 5.5 (5.0-9.0)
[2025-02-13 11:44] LABS: INR 2.29 (0.9-1.15); Partial Thromboplastin Time 37.7 SEC (24.5-34.5); Prothrombin Time 22.4 sec (9.3-11.8)
[2025-02-13 12:20] LABS: Albumin 3.8 g/dL (3.2-4.8); Alkaline Phosphatase 104 U/L (46-116); Anion Gap 4 (5-15); Aspartate Aminotransferase 32 U/L (13-40); BUN/Creatinine Ratio 26.5 (10.0-20.0); Carbon Dioxide 30 mmol/L (20-31); Chloride 105 mmol/L (98-107); HDL Cholesterol 59 mg/dL (40-59); Potassium 4.6 mmol/L (3.5-5.1); Sodium 139 mmol/L (136-145); Total Protein 6.2 g/dL (5.7-8.2)
[2025-02-13 12:21] LABS: Alanine Aminotransferase 68 U/L (7-40); Bilirubin, Total 0.8 mg/dL (0.2-1.0); Blood Urea Nitrogen 27 mg/dL (9-23); Cholesterol 204 mg/dL (< 200); Glucose 203 mg/dL (74-106); LDL Cholesterol 112 mg/dL (< 100); Triglycerides 161 mg/dL (< 150)
[2025-02-13 13:04] LABS: Free T3 2.99 pg/mL (2.3-4.2); T3 Total 1.06 ng/mL (0.60-1.81)
[2025-02-13 13:05] LABS: Folate (Folic Acid) 10.52 ng/mL (>5.38); Free T4 (Free Thyroxine) 1.1 ng/dL (0.89-1.76)
== END | disposition home or self-care (01) ==
LOC: LAB 11:08
PROVIDERS: ATTEND Internal Medicine
DX: I11.0 Hypertensive heart disease with heart failure (principal); I50.9 Heart failure, unspecified; E11.9 Type 2 diabetes mellitus without complications; E78.00 Pure hypercholesterolemia, unspecified
CPT/HCPCS: 36415; 80053; 80061; 81003; 82306; 82607; 82746; 83036; 84439; 84443; 84480; 84481; 85025; 85610; 85730

== ENCOUNTER → 2025-04-21 | Outpatient (CLI) | payer OTHER ==
[2025-04-21 10:00] LABS: Urine Bacteria None Seen /hpf (None Seen)
[2025-04-21 10:32] LABS: Basophils # (auto) 0.1 10 ^3/uL (0-0.2); Basophils % (auto) 1.1 % (0.0-2.0); Eosinophils # (auto) 0 10 ^3/uL (0-0.8); Eosinophils % (auto) 0.1 % (0.0-7.0); Hematocrit 41.3 % (36.0-46.0); Hemoglobin 13.5 g/dL (12.2-16.2); Lymphocytes % (auto) 21.1 % (10.0-50.0); Mean Corpuscular Hemoglobin 29.5 pg (28.0-32.0); Mean Corpuscular Hgb Conc. 32.8 g/dL (32.0-36.0); Mean Corpuscular Volume 89.8 fL (80.0-100.0); Monocytes # (auto) 0.3 10 ^3/uL (0-1.3); Neutrophils # (auto) 3.4 10 ^3/uL (1.6-8.6); Neutrophils % (auto) 70.7 % (37.0-80.0); Nucleated Red Blood Cells % 0.1 %; Platelet Count (auto) 172 10^3/uL (140-450); Red Cell Distribution Width 16.2 % (11.8-14.3); White Blood Cell 4.8 10^3/uL (4.4-10.8)
[2025-04-21 10:39] LABS: Urine Blood 1+ /uL (Negative); Urine Clarity Clear (Clear); Urine Color Light-Yellow (Yellow); Urine Protein, UAD Negative (Negative); Urine Specific Gravity 1.022 (1.001-1.035); Urine Squamous Epithelial Cell FEW /hpf (<5); Urine Urobilinogen Normal (Negative); Urine WBC 12 /HPF (0-5); Urine pH 5.5 (5.0-9.0)
[2025-04-21 10:45] LABS: Albumin 3.7 g/dL (3.2-4.8); Alkaline Phosphatase 103 U/L (46-116); Anion Gap 7 (5-15); Aspartate Aminotransferase 34 U/L (13-40); BUN/Creatinine Ratio 29.4 (10.0-20.0); Bilirubin, Direct 0.2 mg/dL (<0.3); Bilirubin, Total 0.9 mg/dL (0.2-1.0); Calcium 9.3 mg/dL (8.7-10.4); Carbon Dioxide 30 mmol/L (20-31); Chloride 102 mmol/L (98-107); Cholesterol 155 mg/dL (< 200); HDL Cholesterol 42 mg/dL (40-59); LDL Cholesterol 87 mg/dL (< 100); Potassium 4.4 mmol/L (3.5-5.1); Sodium 139 mmol/L (136-145); Total Protein 6.1 g/dL (5.7-8.2)
[2025-04-21 10:50] LABS: Alanine Aminotransferase 53 U/L (7-40); Blood Urea Nitrogen 32 mg/dL (9-23); Glucose 324 mg/dL (74-106); Triglycerides 178 mg/dL (< 150)
[2025-04-21 10:55] LABS: Folate (Folic Acid) 8.78 ng/mL (>5.38)
[2025-04-21 11:21] LABS: Uric Acid 5.1 mg/dL (3.1-7.8)
== END | disposition home or self-care (01) ==
LOC: LAB 09:42
PROVIDERS: ATTEND Internal Medicine
DX: E61.2 Magnesium deficiency (principal); E55.9 Vitamin D deficiency, unspecified; E78.49 Other hyperlipidemia; D51.9 Vitamin B12 deficiency anemia, unspecified; E79.0 Hyperuricemia without signs of inflammatory arthritis and tophaceous disease; R94.6 Abnormal results of thyroid function studies; R82.79 Other abnormal findings on microbiological examination of urine; R82.998 Other abnormal findings in urine; R73.09 Other abnormal glucose; R68.89 Other general symptoms and signs; R82.90 Unspecified abnormal findings in urine
CPT/HCPCS: 36415; 80053; 80061; 81001; 82248; 82306; 82607; 82746; 83036; 84443; 84550; 85025; 87086

== ENCOUNTER → 2025-04-29 | Day surgery (SDC) | payer OTHER ==
[2025-04-26 12:27] LABS: Basophils # (auto) 0 10 ^3/uL (0-0.2); Basophils % (auto) 0.7 % (0.0-2.0); Eosinophils # (auto) 0 10 ^3/uL (0-0.8); Eosinophils % (auto) 0.2 % (0.0-7.0); Hematocrit 42.5 % (36.0-46.0); Lymphocytes # (auto) 0.9 10 ^3/uL (0.4-5.4); Lymphocytes % (auto) 22.6 % (10.0-50.0); Mean Corpuscular Hemoglobin 29.7 pg (28.0-32.0); Mean Corpuscular Volume 89.9 fL (80.0-100.0); Monocytes # (auto) 0.3 10 ^3/uL (0-1.3); Neutrophils # (auto) 2.8 10 ^3/uL (1.6-8.6); Neutrophils % (auto) 68.5 % (37.0-80.0); Nucleated Red Blood Cells % 0.1 %; Platelet Count (auto) 182 10^3/uL (140-450); Red Blood Cells 4.72 10^6/uL (4.0-5.20); Red Cell Distribution Width 15.8 % (11.8-14.3); White Blood Cell 4.1 10^3/uL (4.4-10.8)
[2025-04-26 12:38] LABS: INR 1.21 (0.9-1.15); Partial Thromboplastin Time 27.6 SEC (24.5-34.5); Prothrombin Time 12.6 sec (9.3-11.8)
[2025-04-26 12:48] LABS: Albumin 3.9 g/dL (3.2-4.8); Alkaline Phosphatase 107 U/L (46-116); Anion Gap 5 (5-15); Aspartate Aminotransferase 28 U/L (13-40); BUN/Creatinine Ratio 22.6 (10.0-20.0); Blood Urea Nitrogen 21 mg/dL (9-23); Calcium 9.6 mg/dL (8.7-10.4); Carbon Dioxide 30 mmol/L (20-31); Chloride 106 mmol/L (98-107); Potassium 5.1 mmol/L (3.5-5.1); Sodium 141 mmol/L (136-145); Total Protein 6.3 g/dL (5.7-8.2)
[2025-04-26 12:49] LABS: Alanine Aminotransferase 53 U/L (7-40); Bilirubin, Total 1.2 mg/dL (0.2-1.0); Glucose 243 mg/dL (74-106)
[~2025-04-29] VITALS: Ht 162.6 cm; Wt 80.7 kg
[~2025-04-29] MED LIST changes: +CHOL25CH3 PO; -DULA3INJ SC; -INSU1.2I SC; +INSU300I SC; +LOSA-533 PO; +POTA-36 PO; +TIRZ7.5I SC
[2025-04-29] MEDS: MIDAZOLAM HCL 2MG/2ML 2ml VIAL (1mg/ml) ONE (11:22)
[2025-04-29] MEDS: fentaNYL CITRATE 100 MCG/2 ML VL ONE (11:22)
[2025-04-29 11:38] VITALS: PULSE 87; RESP 14; TEMP 96.7; O2SAT 98
--- NOTE | 2025-04-29 11:40 | DVHNC2 ---
Procedure - ROCEDURE DATE: 04/29/2025 PROCEDURE PERFORMED BY: PAOLA SALGADO MD REFERRING PROVIDER: HARRIETT SUTHERLAND MD PROCEDURE PERFORMED: 1. Colonoscopy with moderate sedation 2. Colonoscopy with polypectomy with cold biopsy forceps PRE-PROCEDURE DIAGNOSIS: 1. Colon cancer screening POSTPROCEDURE DIAGNOSIS: 1. 2 mm cecal polyp 2. 2 x 3 mm ascending colon polyps 3. Small rectal polyp 4. Small internal and external hemorrhoids INDICATION FOR PROCEDURE: THE PATIENT IS A 69-YEAR-OLD FEMALE WHO PRESENTS FOR OUTPATIENT COLONOSCOPY FOR SCREENING. SHE ALSO HAS COMPLAINTS OF BLOATING, CHANGE IN BOWEL HABITS AND OCCASIONAL BLOOD WITH WIPING MEDICATIONS USED: 3 MG OF VERSED AND 25 MCG OF FENTANYL IV WAS GIVEN IN INCREMENTAL DOSES DETAILS OF THE PROCEDURE: Informed consent was obtained after risks, benefits, and alternatives were discussed at length with the patient. Consent was given for the procedure as well as medication used for sedation. She was placed in the left lateral decubitus position. Digital rectal exam showed small internal and external hemorrhoids. An Olympus variable torsion pediatric colonoscope was inserted into the rectum and advanced to the cecum. The cecum was identified by the ileocecal valve and the appendiceal orifice. The scope was then withdrawn. The prep was good with only small amounts of stool. [place] bowel prep score of eight was noted. There were no large polyps, masses, strictures or arteriovenous malformation seen. Four small polyps were removed one measuring 2 mm in the cecum, two in the ascending colon measuring 3 mm, and a diminutive polyp in the rectum. All were removed with cold biopsy forceps completely. Retroflexion showed internal hemorrhoids. The patient tolerated the procedure well. START TIME: 1125 CECUM TIME: 1127 END TIME: 1135 IMPRESSION: 1. Four small colon polyps, internal and external hemorrhoids RECOMMENDATIONS: 1. Follow up with me in clinic for procedure and pathology results 2. High-fiber diet 3. Consider medical management of hemorrhoids 4. Repeat colonoscopy in three years unless otherwise indicated. I WOULD LIKE TO THANK DR SUTHERLAND FOR THIS REFERRAL PAOLA SALGADO MD April 29, 2025 11:40
[2025-04-29 12:00] VITALS: BP 122/59; PULSE 88; RESP 14; O2SAT 98
== END | disposition home or self-care (01) ==
LOC: GI 10:01
PROVIDERS: ATTEND Specialist
DX: R19.4 Change in bowel habit (principal); K63.5 Polyp of colon; D12.0 Benign neoplasm of cecum; D12.2 Benign neoplasm of ascending colon; K62.1 Rectal polyp; K64.4 Residual hemorrhoidal skin tags; K64.8 Other hemorrhoids; K92.1 Melena; R14.0 Abdominal distension (gaseous); Z79.899 Other long term (current) drug therapy; K21.9 Gastro-esophageal reflux disease without esophagitis; Z95.1 Presence of aortocoronary bypass graft; Z95.5 Presence of coronary angioplasty implant and graft; Z95.0 Presence of cardiac pacemaker; Z98.890 Other specified postprocedural states; Z91.041 Radiographic dye allergy status
CPT/HCPCS: 36415; 45380; 80053; 82962; 85025; 85610; 85730; 88305; J2250; J3010; 99152

== ENCOUNTER 2025-05-16 11:29 | Outpatient (CLI) | payer OTHER ==
[2025-05-16 11:52] LABS: Basophils # (auto) 0 10 ^3/uL (0-0.2); Basophils % (auto) 0.7 % (0.0-2.0); Eosinophils # (auto) 0 10 ^3/uL (0-0.8); Eosinophils % (auto) 0.2 % (0.0-7.0); Hematocrit 41.9 % (36.0-46.0); Lymphocytes # (auto) 0.8 10 ^3/uL (0.4-5.4); Lymphocytes % (auto) 22.1 % (10.0-50.0); Mean Corpuscular Hemoglobin 29.7 pg (28.0-32.0); Mean Corpuscular Hgb Conc. 33.3 g/dL (32.0-36.0); Mean Corpuscular Volume 89.1 fL (80.0-100.0); Monocytes # (auto) 0.3 10 ^3/uL (0-1.3); Monocytes % (auto) 8.6 % (0.0-12.0); Neutrophils # (auto) 2.6 10 ^3/uL (1.6-8.6); Neutrophils % (auto) 68.4 % (37.0-80.0); Nucleated Red Blood Cells % 0.3 %; Platelet Count (auto) 189 10^3/uL (140-450); Red Blood Cells 4.71 10^6/uL (4.0-5.20); Red Cell Distribution Width 15.6 % (11.8-14.3); White Blood Cell 3.7 10^3/uL (4.4-10.8)
[2025-05-16 12:05] LABS: Alanine Aminotransferase 40 U/L (7-40); Albumin 3.7 g/dL (3.2-4.8); Alkaline Phosphatase 93 U/L (46-116); Anion Gap 7 (5-15); Aspartate Aminotransferase 28 U/L (<34); BUN/Creatinine Ratio 21.8 (10.0-20.0); Bilirubin, Direct 0.3 mg/dL (<0.3); Bilirubin, Total 0.9 mg/dL (0.2-1.0); Blood Urea Nitrogen 22 mg/dL (9-23); Calcium 9.5 mg/dL (8.7-10.4); Carbon Dioxide 29 mmol/L (20-31); Chloride 106 mmol/L (98-107); Cholesterol 171 mg/dL (< 200); HDL Cholesterol 48 mg/dL (40-59); LDL Cholesterol 99 mg/dL (< 100); Potassium 4.3 mmol/L (3.5-5.1); Sodium 142 mmol/L (136-145); Triglycerides 130 mg/dL (< 150)
[2025-05-16 12:06] LABS: Glucose 186 mg/dL (74-106)
[2025-05-16 12:08] LABS: INR 2.67 (0.9-1.15); Prothrombin Time 25.7 sec (9.3-11.8)
== END 2025-05-16 17:00 | disposition home or self-care (01) ==
LOC: LAB 11:29
PROVIDERS: ATTEND Specialist
DX: I11.0 Hypertensive heart disease with heart failure (principal); I50.9 Heart failure, unspecified; E11.9 Type 2 diabetes mellitus without complications; E78.5 Hyperlipidemia, unspecified; R79.1 Abnormal coagulation profile; D64.9 Anemia, unspecified; E03.9 Hypothyroidism, unspecified; R68.89 Other general symptoms and signs
CPT/HCPCS: 36415; 80053; 80061; 82248; 83036; 84443; 85025; 85610

== ENCOUNTER 2025-06-23 13:27 | Emergency (ER) | payer OTHER ==
[~2025-06-23] VITALS: Ht 162.6 cm; Wt 81.8 kg
--- NOTE | 2025-06-23 13:49 | ED.PDOC ---
Jesse. trauma (HPI) HPI Comments This is a 69 year old female presenting to the ED with chief complaint of facial injury s/p fall. Patient reports that after leaving her doctor's appointment today, she had accidentally tripped over a curb and fell face first into the pavement. Patient relays that she now has a big bruise to the right forehead. Patient states that she did not lose consciousness, but she is on Warfarin at this time. Patient denies any LOC, headache, syncope, dizziness, N/V, chest pain, or further injury. Chief Complaint: Fall Injury Time Seen by MD: 13:46 Primary Care Provider: ENA Reviewed notes: Nurses Notes, Medications, Allergies Allergies: Coded Allergies: Iodine (Verified Allergy, Intermediate, 05/10/22) Home Meds Reported Medications Cholecalciferol (D3) 25 Mcg Chw, 25 MCG PO DAILY, TAB.CHEW 04/26/25 Potassium Chloride (POTASSIUM CHLORIDE CR) 10 Meq Tb, 10 MEQ PO 2XW, TAB 04/26/25 Losartan Potassium (Losartan Potassium) 25 Mg Tab, 25 MG PO DAILY, TAB 04/26/25 Insulin Glargine (Toujeo Max Solostar) 300 Unit/Ml Inj, 30 UNIT SC HS, INJ 04/26/25 Tirzepatide (Mounjaro) 7.5 Mg/0.5 Ml Inj, 7.5 MG SC QWEEKLY, INJ 04/26/25 Insulin Lispro (Human) (Humalog) 100 Unit/Ml Inj, 14 UNIT SC TID for PER SLIDING SCALE, INJ 01/06/24 Nitroglycerin (Nitrostat) 0.4 Mg Sub, 0.4 MG SL PRN for CHEST PAIN, INJ 01/06/24 Atorvastatin Calcium (ATORVASTATIN CALCIUM) 80 Mg Tab, 1 TAB PO DAILY for HIGH CHOLESTEROL, #30 TAB 5 Refills 01/06/24 Warfarin Sodium (Warfarin Sodium) 2.5 Mg Tab, 2.5 MG PO MON,WED,THU,SAT,SUN for 30 Days, MG 01/06/24 Warfarin Sodium (Warfarin Sodium) 1 Mg Tab, 1 MG PO QWEEKLY for for 30 Days, MG 01/06/24 Isosorbide Mononitrate (Isosorbide Mononitrate) 10 Mg Tab, 10 MG PO BID, TAB 01/06/24 Aspirin (Aspir-Low) 81 Mg Tab, 81 MG PO DAILY, MG 01/06/24 Metoprolol Succinate (Metoprolol Succinate Er) 50 Mg Tab, 50 MG PO DAILY for 30 Days, MG 01/06/24 Gabapentin (Gabapentin) 100 Mg Cap, 1 CAP PO BID for neuropathy, #90 CAP 2 Refills 10/16/22 Omeprazole (Gnp Omeprazole) 20 Mg Tab, 1 TAB PO DAILY, #90 TAB 1 Refill 10/16/22 Oxybutynin Chloride (Ditropan Xl) 5 Mg Tab, 5 MG PO DAILY, TAB 10/16/22 Furosemide (Lasix) 40 Mg Tab, 40 MG PO DAILY for edema, TAB 10/16/22 Paroxetine HCl (Paroxetine Hydrochloride) 30 Mg Tab, 10 MG PO DAILY for anxiety, TAB 10/16/22 Information Source: Patient Mode of Arrival: Ambulatory Severity: Moderate Timing: Hours Duration: Since onset Prehospital treatment: None Location: Face Mechanism: Fall Past Medical History PAST MEDICAL HISTORY: AFIB, CAD, CHF, DM, High Lipids, HTN, NV Surgical History: Pacemaker, Tubal Ligation OPERATIONS OFFICER History: Denies all OPERATIONS OFFICER Hx Family History Family History: Reviewed,noncontributory to illness Social History Smoker: Non-Smoker Alcohol: Denies ETOH Use Drugs: Denies Drug Use Lives In: Home Constitutional: denies: chills, diaphoresis, fatigue, fever, malaise, sweats, weakness, others EENTM: denies: blurred vision, double vision, ear bleeding, ear discharge, ear drainage, ear pain, ear ringing, eye pain, eye redness, hearing loss, mouth pain, mouth swelling, nasal discharge, nose bleeding, nose congestion, nose pain, photophobia, tearing, throat pain, throat swelling, voice changes, others Respiratory: denies: cough, hemoptysis, orthopnea, SOB at rest, shortness of breath, SOB with excertion, stridor, wheezing, others Cardiovascular: denies: chest pain, dizzy spells, diaphoresis, Dyspnea on exertion, edema, irregular heart beat, left arm pain, lightheadedness, palpitations, PND, syncope, others Gastrointestinal: denies: abdomen distended, abdominal pain, blood streaked bowels, constipated, diarrhea, dysphagia, difficulty swallowing, hematemesis, melena, nausea, poor appetite, poor fluid intake, rectal bleeding, rectal pain, vomiting, others Genitourinary: denies: abnormal vagina bleeding, burning, dyspareunia, dysuria, flank pain, frequency, hematuria, incontinence, pain, , vagina discharge, urgency, others Neurological: denies: dizziness, fainting, headache, left sided numbness, left sided weakness, numbness, paresthesia, pre-existing deficit, right sided numbness, right sided weakness, seizure, speech problems, tingling, tremors, w eakness, others Musculoskeletal: denies: back pain, gout, joint pain, joint swelling, muscle pain, muscle stiffness, neck pain, others Integumetry: reports: bruises (Rt forehead); denies: change in color, change in hair/nails, dryness, laceration, lesions, lumps, rash, wounds, others Allergic/Immunocompromised: denies: Difficulty Healing, Frequent Infections, Hives, Itching, others Hematologic/Lymphatic: denies: anemia, blood clots, easy bleeding, easy bruising, swollen glands, others Endocrine: denies: excessive hunger, excessive sweating, excessive thirst, excessive urination, flushing, intolerance to cold, intolerance to heat, unexplained weight gain, unexplained weight loss, others Psychiatric: denies: anxiety, bipolar disorder, depression, hopeless, panic disorder, schizophrenia, sleepless, suicidal, others All Other Systems: Reviewed and Negative Physical Exam General Appearance: Moderate Distress, Normal HEENT: Normal ENT Inspection, Pharynx Normal, TMs Normal Neck: Full Range of Motion, Non-Tender, Normal, Normal Inspection Respiratory: Chest Non-Tender, Lungs Clear, No Accessory Muscle Use, No Respiratory Distress, Normal Breath Sounds Cardiovascular: No Edema, No JVD, No Murmur, No Gallop, Normal Peripheral Pu lses, Regular Rate/Rhythm Breast Exam: Deferred Gastrointestinal: No Organomegaly, Non Tender, No Pulsatile Mass, Normal Bowel Sounds, Soft Genitalia: Deferred Pelvic: Deferred Rectal: Deferred Extremities: No calf tenderness, Normal capillary refill, Normal inspection, Normal range of motion, Non-tender, No pedal edema Musculoskeletal : Apperance: Normal Neurologic: Alert, information broker II-XII nml as Tested, No Motor Deficits, Normal Affect, Normal Mood, No Sensory Deficits Cerebellar Function: NOT DONE Reflexes: NOT DONE Skin: Dry, Normal Color, Warm, Wounds (Swelling of the forehead nose) Peripheral Pulses: 3+ Radial (R), 3+ Radial (L) Lymphatic: No Adenopathy Was a procedure done? Was a procedure done?: No Differential Diagnosis Multiple Trauma: Fractures, Abrasions, Hematoma X-Ray, Labs, Meds, VS Vital Signs Date Time Temp Pulse Resp B/P (MAP) Pulse Ox O2 Delivery O2 Flow Rate FiO2 06/23/25 14:39 91 06/23/25 13:33 98.4 98 18 144/56 (85) [address]: Findings: There is acute nasal bone fracture with associated soft tissue edema. Minimal mucoperiosteal thickening of the maxillary and ethmoid sinuses. The remainder of the paranasal sinuses are clear. Decreased pneumatization of bilateral mastoids. Debris within the right external auditory canal. Recommend further evaluation of the direct visualization. There is right forehead moderate hematoma with soft tissue edema extending medially to involve the right nasal soft tissues Bilateral lens replacement. Otherwise orbits and globes unremarkable. Patient is edentulous. The nasopharynx, oropharynx and hypopharynx unremarkable. Impression: Acute comminuted nasal bone fracture with associated nasal soft tissue edema. Additional soft tissue edema of the right forehead with moderate hematoma. Mild mucoperiosteal thickening of the maxillary sinuses and ethmoid air cells. Rt knee XR: FINDINGS/IMPRESSION: There are no fractures or dislocations. Bony alignment appears normal There are no radiopaque foreign bodies. Head CT: FINDINGS: There is sulcal and ventricular prominence. The brainshows normal morphology and loaiza-white matter differentiation, without intracranial hemorrhage, extra-axial fluid collection, mass effect or acute large vessel infarct. The ventricles are normal in size. The basal cisterns are patent. The skull and visible facial bones are intact. The paranasal sinuses, mastoid air cells and middle ear cavities are well-aerated. There is a right frontal scalp hematoma.. IMPRESSION: No acute intracranial abnormality. Patient alert. Status post fall. Has a hematoma on the forehead. Vitals stable. Answering questions. CT of the head reviewed does not show any acute changes. CT of the maxillofacial does show nasal bone fracture. Does show hematoma on the frontal bone. No intracranial bleed. Explained to the family that patient will heal on its own. No surgical intervention is needed for the nasal bone fracture. Was given prescription of Augmentin antibiotic. Explained to the patient. Was told to follow up with her primary care physician. Was told to come back if there is any problem. Images Reviewed?: Images reviewed and evaluated by me Time of 1ST Reevaluation: 14:46 Reevaluation 1ST: Unchanged Patient Education/Counseling: Diagnosis, Treatment Family Education/Counseling: No Family Present Departure 1 Departure Time of Disposition: 14:56 Impression: Primary Impression: Head injury Qualified Codes: S09.90XA - Unspecified injury of head, initial encounter Additional Impression: Nasal bone fracture Qualified Codes: S02.2XXA - Fracture of nasal bones, initial encounter for closed fracture Disposition: 01 HOME / SELF CARE / HOMELESS Condition: Good Discharged With: Self Critical Care Note Critical Care Time?: No Stability Stability form required: No Heart Score Heart Score: Heart Score Response (Comments) Value History N/A 0 EKG N/A 0 Age N/A 0 Risk Factors N/A 0 Troponin N/A 0 Total 0 I personally scribed for GLADYS GAO MD ([email or web address]) on 06/23/25 at 13:49. Electronically submitted by Marlon Stephens ([email or web address]). I personally scribed for GLADYS GAO MD ([email or web address]) on 06/23/25 at 14:49. Electronically submitted by Marlon Stephens ([email or web address]). GLADYS GAO MD Jun 23, 2025 13:49
--- NOTE | 2025-06-23 14:23 | DVH ---
CLINICAL INDICATION: PAIN S/P FALL TECHNIQUE: 3 radiographic views of the right knee were obtained. Comparison: None FINDINGS/IMPRESSION: There are no fractures or dislocations. Bony alignment appears normal There are no radiopaque foreign bodies.
[2025-06-23 14:25] VITALS: BP 129/58; RESP 16; TEMP 97.8; O2SAT 96
[2025-06-23 14:39] VITALS: PULSE 91
--- NOTE | 2025-06-23 14:39 | DVH ---
CT HEAD WITHOUT CONTRAST INDICATION: fall EXAM DATE: 06/23/2025 01:38 PM COMPARISON: None RADIATION DOSE: CTDIvol: 51.77 mGy, DLP: 863.9 mGy*cm PROCEDURE: CT scans of the head were obtained from the vertex to the skull base. Sagittal and coronal reconstructions were provided. All CT scans at this medical facility are performed using dose modulation techniques as appropriate t o a performed exam including the following: Automated exposure control was utilized; adjustment of th e MA and/or KV according to patient size; and use of iterative reconstruction technique. FINDINGS: There is sulcal and ventricular prominence. The brainshows normal morphology and loaiza-whi te matter differentiation, without intracranial hemorrhage, extra-axial fluid collection, mass effect or acute large vessel infarct. The ventricles are normal in size. The basal cisterns are patent. The skull and visible facial bones are intact. The paranasal sinuses, mastoid air cells and middle ear c avities are well-aerated. There is a right frontal scalp hematoma.. IMPRESSION: No acute intracranial abnormality.
--- NOTE | 2025-06-23 14:42 | DVH ---
Procedure: CT MAXILLOFACIAL WITHOUT Study Date and Requested Time: 2024 01:44 PM History: S/P FALL; HEMATOMA Comparison: None Dose: CTDI: 56.29 mGy DLP: 1056.98 mGycm Technique: Multiplanar images obtained through the face without intravenous contrast. Findings: There is acute nasal bone fracture with associated soft tissue edema. Minimal mucoperiosteal thickening of the maxillary and ethmoid sinuses. The remainder of the paranasa l sinuses are clear. Decreased pneumatization of bilateral mastoids. Debris within the right external auditory canal. Recommend further evaluation of the direct visualization. There is right forehead moderate hematoma with soft tissue edema extending medially to involve the ri ght nasal soft tissues Bilateral lens replacement. Otherwise orbits and globes unremarkable. Patient is edentulous. The nasopharynx, oropharynx and hypopharynx unremarkable. Impression: Acute comminuted nasal bone fracture with associated nasal soft tissue edema. Additional soft tissue edema of the right forehead with moderate hematoma. Mild mucoperiosteal thickening of the maxillary sinuses and ethmoid air cells.
--- NOTE | 2025-06-24 01:50 | ECG ---
[facility] Test Date: 2025-06-23 Test Time: 14:39:15 Pat Name: JERI SANCHEZ Department: ED Room: Gender: F [employer] St[employer]: DUONG : 1955 Requested By: GLADYS GAO Order Number: [id number] Reading MD: Measurements Intervals [place] Rate: 91 P: 0 SC: 0 QRS: 61 QRSD: 90 T: 29 QT: 377 QTc: 464 Interpretive Statements Atrial fibrillation Low voltage, precordial leads Please click the below link to view image of tracing.
== END 2025-06-23 15:40 | disposition home or self-care (01) ==
LOC: ER 13:29
DX: S02.2XXA Fracture of nasal bones, initial encounter for closed fracture (principal); S00.83XA Contusion of other part of head, initial encounter; W19.XXXA Unspecified fall, initial encounter; Y93.89 Activity, other specified; Y92.89 Other specified places as the place of occurrence of the external cause; Y99.8 Other external cause status; I25.10 Atherosclerotic heart disease of native coronary artery without angina pectoris; I48.91 Unspecified atrial fibrillation; I11.0 Hypertensive heart disease with heart failure; I50.9 Heart failure, unspecified; E11.9 Type 2 diabetes mellitus without complications; Z98.51 Tubal ligation status; Z95.0 Presence of cardiac pacemaker; Z79.899 Other long term (current) drug therapy; Z88.8 Allergy status to other drugs, medicaments and biological substances
CPT/HCPCS: 70450; 70486; 73562; 93005

== ENCOUNTER 2025-06-29 13:58 | Emergency (ER) | payer OTHER ==
[~2025-06-29] VITALS: Ht 162.6 cm; Wt 80.0 kg
--- NOTE | 2025-06-29 15:09 | ED.PDOC ---
Musculoskeletal HPI Comments 69y F who presents to the ED for chief complaint of fall injury. Pt states she had trip fall, last Thursday while coming out of store. Pt states she tripped and fell on concrete. Pt came to the ED, and states she had imaging done and states she was dx with fracture of nose but pt otherwise had no other fractures and negative workup. Pt states since, she has been having increasing headache, pressure like in nature, constant, with no associated exacerbating or relieving factors. Pt otherwise has noted bruising on face. Pt is noted to be on blood thinner for AFIB. Pt denies any other symptoms at this time. Chief Complaint: Fall Injury Time Seen by MD: 14:23 Primary Care Provider: ENA Reviewed Notes: Nurses Notes, Medications, Allergies Allergies: Coded Allergies: Iodine (Verified Allergy, Intermediate, 05/10/22) Home Meds Reported Medications Cholecalciferol (D3) 25 Mcg Chw, 25 MCG PO DAILY, TAB.CHEW 04/26/25 Potassium Chloride (POTASSIUM CHLORIDE CR) 10 Meq Tb, 10 MEQ PO 2XW, TAB 04/26/25 Losartan Potassium (Losartan Potassium) 25 Mg Tab, 25 MG PO DAILY, TAB 04/26/25 Insulin Glargine (Toujeo Max Solostar) 300 Unit/Ml Inj, 30 UNIT SC HS, INJ 04/26/25 Tirzepatide (Mounjaro) 7.5 Mg/0.5 Ml Inj, 7.5 MG SC QWEEKLY, INJ 04/26/25 Insulin Lispro (Human) (Humalog) 100 Unit/Ml Inj, 14 UNIT SC TID for PER SLIDING SCALE, INJ 01/06/24 Nitroglycerin (Nitrostat) 0.4 Mg Sub, 0.4 MG SL PRN for CHEST PAIN, INJ 01/06/24 Atorvastatin Calcium (ATORVASTATIN CALCIUM) 80 Mg Tab, 1 TAB PO DAILY for HIGH CHOLESTEROL, #30 TAB 5 Refills 01/06/24 Warfarin Sodium (Warfarin Sodium) 2.5 Mg Tab, 2.5 MG PO MON,WED,FRI,SAT,SUN for 30 Days, MG 01/06/24 Warfarin Sodium (Warfarin Sodium) 1 Mg Tab, 1 MG PO QWEEKLY for for 30 Days, MG 01/06/24 Isosorbide Mononitrate (Isosorbide Mononitrate) 10 Mg Tab, 10 MG PO BID, TAB 2/7/24 Aspirin (Aspir-Low) 81 Mg Tab, 81 MG PO DAILY, MG 01/06/24 Metoprolol Succinate (Metoprolol Succinate Er) 50 Mg Tab, 50 MG PO DAILY for 30 Days, MG 01/06/24 Gabapentin (Gabapentin) 100 Mg Cap, 1 CAP PO BID for neuropathy, #90 CAP 2 Refills 10/16/22 Omeprazole (Gnp Omeprazole) 20 Mg Tab, 1 TAB PO DAILY, #90 TAB 1 Refill 10/16/22 Oxybutynin Chloride (Ditropan Xl) 5 Mg Tab, 5 MG PO DAILY, TAB 10/16/22 Furosemide (Lasix) 40 Mg Tab, 40 MG PO DAILY for edema, TAB 10/16/22 Paroxetine HCl (Paroxetine Hydrochloride) 30 Mg Tab, 10 MG PO DAILY for anxiety, TAB 10/16/22 Information Source: Patient Mode of Arrival: Ambulatory Brought in by: Extremity Location: Other (face) Timing: Days Prehospital treatment: None Severity: Moderate Able to Move Extremity: Yes Bear Weight: Fully Pain: Moderate Mechanism: Spontaneous Circumstances: Fall Onset of Symptoms: Spontaneous, After Trauma Symptoms: Pain DVT Risk Factors: NONE Last Tetanus: Unknown Associated signs and symptoms: Below joint pain Past Medical History PAST MEDICAL HISTORY: AFIB, CAD, CHF, DM, High Lipids, HTN, [place] Surgical History: Pacemaker, Tubal Ligation RN [facility]OMECARE History: Denies all RN HOMECARE Hx Family History Family History: Reviewed,noncontributory to illness Social History Smoker: Non-Smoker Alcohol: Denies ETOH Use Drugs: Denies Drug Use Lives In: Home Constitutional: denies: chills, diaphoresis, fatigue, fever, malaise, sweats, weakness, others EENTM: denies: blurred vision, double vision, ear bleeding, ear discharge, ear drainage, ear pain, ear ringing, eye pain, eye redness, hearing loss, mouth pain, mouth swelling, nasal discharge, nose bleeding, nose congestion, nose pain, photophobia, tearing, throat pain, throat swelling, voice changes, others Respiratory: denies: cough, hemoptysis, orthopnea, SOB at rest, shortness of breath, SOB with excertion, stridor, wheezing, others Cardiovascular: denies: chest pain, dizzy spells, diaphoresis, Dyspnea on e xertion, edema, irregular heart beat, left arm pain, lightheadedness, palpitations, PND, syncope, others Gastrointestinal: denies: abdomen distended, abdominal pain, blood streaked bowels, constipated, diarrhea, dysphagia, difficulty swallowing, hematemesis, melena, nausea, poor appetite, poor fluid intake, rectal bleeding, rectal pain, vomiting, others Genitourinary: denies: abnormal vagina bleeding, burning, dyspareunia, dysuria, flank pain, frequency, hematuria, incontinence, pain, , vagina discharge, urgency, others Neurological: reports: headache; denies: dizziness, fainting, left sided numbness, left sided weakness, numbness, paresthesia, pre-existing deficit, right sided numbness, right sided weakness, seizure, speech problems, tingling, tremors, weakness, others Musculoskeletal: denies: back pain, gout, joint pain, joint swelling, muscle pain, muscle stiffness, neck pain, others Integumetry: denies: bruises, change in color, change in hair/nails, dryness, laceration, lesions, lumps, rash, wounds, others Allergic/Immunocompromised: denies: Difficulty Healing, Frequent Infections, Hives, Itching, others Hematologic/Lymphatic: denies: anemia, blood clots, easy bleeding, easy bruising, swollen glands, others Endocrine: denies: excessive hunger, excessive sweating, excessive thirst, excessive urination, flushing, intolerance to cold, intolerance to heat, unexplained weight gain, unexplained weight loss, others Psychiatric: denies: anxiety, bipolar disorder, depression, hopeless, panic disorder, schizophrenia, sleepless, suicidal, others All Other Systems: Reviewed and Negative Physical Exam General Appearance: Moderate Distress HEENT: Pharynx Normal, TMs Normal, Other (Ecchymosis with significant amount of facial swelling and nasal tenderness with deformity) Neck: Full Range of Motion, Non-Tender, Normal, Normal Inspection Respiratory: Chest Non-Tender, Lungs Clear, No Accessory Muscle Use, No Respiratory Distress, Normal Breath Sounds Cardiovascular: No Edema, No JVD, No Murmur, No Gallop, Normal Peripheral Pulses, Regular Rate/Rhythm Breast Exam: Deferred Gastrointestinal: No Organomegaly, Non Tender, No Pulsatile Mass, Normal Bowel Sounds, Soft Genitalia: Deferred Pelvic: Deferred Rectal: Deferred Extremities: No calf tenderness, Normal capillary refill, No pedal edema Musculoskeletal : Apperance: Normal Neurologic: Alert, registered nurse cardiovascular icu II-XII nml as Tested, Motor Weakness, Normal Affect, Normal Mood, No Sensory Deficits Cerebellar Function: Normal Reflexes: Normal Skin: Dry, Normal Color, Warm Lymphatic: No Adenopathy Was a procedure done? Was a procedure done?: No Differential Diagnosis EXT Differential Diagnosis: Contusion, Neurovascular injury Other Differential Diagnosis headache, facial contusion, X-Ray, Labs, Meds, VS Vital Signs Date Time Temp Pulse Resp B/P (MAP) Pulse Ox O2 Delivery O2 Flow Rate FiO2 06/29/25 15:10 103 19 97 Room Air* 0 21 06/29/25 15:10 98.6 103 19 141/74 (96) 97 98.6 06/29/25 13:58 98.1 108 18 136/58 99 98.1 Procedure: CT MAXILLOFACIAL WITHOUT Study Date and Requested Time: 06/23/2025 01:44 PM Impression: Acute comminuted nasal bone fracture with associated nasal soft tissue edema. Additional soft tissue edema of the right forehead with moderate hematoma. Mild mucoperiosteal thickening of the maxillary sinuses and ethmoid air cells. A CAT scan of the head was done on Thursday which was negative but the CAT scan today was done and it shows a right inferior frontal bleed as well as a subdural measuring 7 mm in the anterior falx The right inferior frontal bleed as about 6 mm The patient's mentation states clear. IV Hep-Lock was established The patient is currently on warfarin The patient was given Keppra 1000 mg IV piggyback. The patient is being started on vitamin K IV piggyback over 30 minutes secondary to the intracranial bleed. At this time, the patient is being transferred to [facility] We did speak with Dr. Singletary and he has accepted the patient. We have discussed the findings with the patient and her The patient will be transferred code 3. At this time the patient has no deficits and is in no distress except for intractable pain. The patient is also being given morphine 2 mg IV push and Zofran 4 mg IV push for the nausea Images Reviewed?: Images reviewed and evaluated by me Time of 1ST Reevaluation: 15:32 Reevaluation 1ST: Unchanged Patient Education/Counseling: Diagnosis, Treatment, Prognosis Family Education/Counseling: Diagnosis, Treatment, Prognosis Departure 1 Departure Time of Disposition: 15:32 Impression: Primary Impression: Subdural hematoma Additional Impressions: Intracranial bleed History of fall Disposition: [facility]OSPICE[facility]MEDICAL FACILITY Condition: Guarded Critical Care Note Critical Care Time?: Yes (45 min-critical care time only) Stability Stability form required: Yes Stable for transfer: Intended for transfer (Health plan request transfer), To designated facility Heart Score Heart Score: Heart Score Response (Comments) Value History N/A 0 EKG N/A 0 Age N/A 0 Risk Factors N/A 0 Troponin N/A 0 Total 0 I personally scribed for TORRES GIVENS MD ([email or web address]) on 06/29/25 at 15:09. Electronically submitted by Wyatt MORA). TORRES GIVENS MD Jun 29, 2025 15:09
[2025-06-29 15:10] VITALS: PULSE 103; RESP 19; O2SAT 97
--- NOTE | 2025-06-29 15:24 | DVH ---
EXAM: CT HEAD WITHOUT CONTRAST INDICATION: BOUCHER TECHNIQUE: CT of the head without intravenous contrast. Radiation Dose Information: CT Dose: CTDI volume is 25 mGy. Dose-length product is 250 mGy*cm The dose indicators for CT are the volume Computed Tomography (CT) Dose Index (CTDIvol) and the Dose Length Product (DLP), and are measured in units of mGy and mGy-cm, respectively. These indicators are not patient dose, but values generated from the CT scanner acquisition factors. The report includes radiation exposure data for exposures received during this examination. COMPARISON: CT MAXILLOFACIAL WITHOUT on DOS: 06/23/25, CT HEAD WITHOUT CONTRAST on DOS: 06/23/25 FINDINGS: Acute intracranial hemorrhage involving the right inferior frontal lobe. There is subdural hemorrhag e adjacent to the anterior falx. There is a right frontal bone cephalohematoma The ventricles, sulci and cisterns are age appropriate. The loaiza-white differentiation is intact. Patchy periventricular and subcortical white matter hypoattenuation is nonspecific but may be related to small vessel ischemic disease. The visualized paranasal sinuses and mastoid air cells are clear. The surrounding soft tissues and osseous structures are unremarkable. IMPRESSION: Acute intracranial hemorrhage involving the right inferior frontal lobe, 6mm. There is subdural hemorrhage adjacent to the anterior falx, measuring 7mm. There is a right frontal bone cephalohematoma 2 mm subdural hemorrhage involving the superior right frontal lobe. Critical Result: Intracranial hemorrhage Findings discussed with Dr. Stringer , at 06/29/2025 03:18 PM, and acknowledged receipt and understandi ng of the findings. ..
[2025-06-29] MEDS: levETIRAcetam 1000 mg/100ml 100 ML IV ONE (15:34)
[2025-06-29] MEDS ORDERED: MORPHINE SULFATE INJ 2 MG/ml SYRG IV ONE (15:45)
[2025-06-29] MEDS ORDERED: ONDANSETRON HCL 4 MG/2 ML VIAL IV ONE (15:45)
[2025-06-29] MEDS: phytonadione 10 MG in SODIUM CHL 0.9% 50 ML IV ONE (15:53)
[2025-06-29 16:03] LABS: Hematocrit 41.2 % (36.0-46.0); Hemoglobin 13.8 g/dL (12.2-16.2); Mean Corpuscular Hemoglobin 30.0 pg (28.0-32.0); Mean Corpuscular Volume 89.9 fL (80.0-100.0); Nucleated Red Blood Cells % 0.1 %
[2025-06-29 16:05] VITALS: BP 138/79; PULSE 97; RESP 17; TEMP 98.7; O2SAT 96
[2025-06-29 16:09] LABS: Chloride 103 mmol/L (98-107); Potassium 3.8 mmol/L (3.5-5.1); Sodium 137 mmol/L (136-145)
[2025-06-29 16:10] LABS: Anion Gap 7 (5-15); Calcium 9.6 mg/dL (8.7-10.4); Carbon Dioxide 27 mmol/L (20-31)
[2025-06-29 16:15] LABS: BUN/Creatinine Ratio 17.4 (10.0-20.0); Blood Urea Nitrogen 16 mg/dL (9-23); INR 3.72 (0.9-1.15); Partial Thromboplastin Time 41.8 SEC (24.5-34.5); Prothrombin Time 34.6 sec (9.3-11.8)
[2025-06-29 16:16] LABS: Glucose 206 mg/dL (74-106)
== END 2025-06-29 16:23 | disposition short-term general hospital (02) ==
LOC: ER 13:58
DX: S06.5XAA Traumatic subdural hemorrhage with loss of consciousness status unknown, initial encounter (principal); I11.0 Hypertensive heart disease with heart failure; I50.9 Heart failure, unspecified; I48.91 Unspecified atrial fibrillation; I25.10 Atherosclerotic heart disease of native coronary artery without angina pectoris; E11.9 Type 2 diabetes mellitus without complications; Z79.899 Other long term (current) drug therapy; Z95.0 Presence of cardiac pacemaker; W01.0XXA Fall on same level from slipping, tripping and stumbling without subsequent striking against object, initial encounter; Y93.89 Activity, other specified; Y92.89 Other specified places as the place of occurrence of the external cause; Y99.8 Other external cause status
CPT/HCPCS: 36415; 70450; 80048; 82947; 85025; 85610; 85730; 96374; 96375; 99291; J1953; J3430; 82962

== ENCOUNTER 2025-08-01 10:02 | Outpatient (CLI) | payer OTHER ==
[2025-08-01 10:34] LABS: Hematocrit 38.3 % (36.0-46.0); Hemoglobin 12.8 g/dL (12.2-16.2); Mean Corpuscular Hemoglobin 30.0 pg (28.0-32.0); Mean Corpuscular Volume 89.8 fL (80.0-100.0); Nucleated Red Blood Cells % 0.1 %
[2025-08-01 10:49] LABS: Urine Budding Yeast OCCASIONAL /hpf (None Seen); Urine Protein, UAD Negative (Negative); Urine WBC Clumps PRESENT /hpf (None Seen)
[2025-08-01 11:05] LABS: Alanine Aminotransferase 24 U/L (7-40); Anion Gap 8 (5-15); Calcium 8.7 mg/dL (8.7-10.4); Carbon Dioxide 29 mmol/L (20-31); Chloride 102 mmol/L (98-107); Potassium 4.4 mmol/L (3.5-5.1); Sodium 139 mmol/L (136-145)
[2025-08-01 11:06] LABS: BUN/Creatinine Ratio 25.2 (10.0-20.0)
[2025-08-01 11:07] LABS: Albumin 3.6 g/dL (3.2-4.8); Total Protein 6.3 g/dL (5.7-8.2)
[2025-08-01 11:08] LABS: Bilirubin, Total 0.6 mg/dL (0.2-1.0); Cholesterol 137 mg/dL (< 200)
[2025-08-01 11:09] LABS: Blood Urea Nitrogen 26 mg/dL (9-23); Glucose 170 mg/dL (74-106); HDL Cholesterol 36 mg/dL (40-59); Magnesium 1.2 mg/dL (1.6-2.6); Triglycerides 151 mg/dL (< 150)
[2025-08-01 11:12] LABS: Alkaline Phosphatase 79 U/L (46-116)
[2025-08-01 12:04] LABS: Uric Acid 6.0 mg/dL (3.1-7.8)
== END 2025-08-01 17:00 | disposition home or self-care (01) ==
LOC: LAB 10:02
PROVIDERS: ATTEND Internal Medicine
DX: E78.49 Other hyperlipidemia (principal); E61.2 Magnesium deficiency; E79.0 Hyperuricemia without signs of inflammatory arthritis and tophaceous disease; E55.9 Vitamin D deficiency, unspecified; R68.89 Other general symptoms and signs; D51.9 Vitamin B12 deficiency anemia, unspecified; R82.90 Unspecified abnormal findings in urine; R82.79 Other abnormal findings on microbiological examination of urine; R82.998 Other abnormal findings in urine; R94.6 Abnormal results of thyroid function studies; R73.09 Other abnormal glucose
CPT/HCPCS: 36415; 80053; 80061; 81001; 82306; 82607; 83036; 83735; 84443; 84550; 85025; 87086

== ENCOUNTER 2025-08-25 11:55 | Outpatient (CLI) | payer OTHER ==
[2025-08-25 12:33] LABS: Hematocrit 35.1 % (36.0-46.0); Hemoglobin 11.6 g/dL (12.2-16.2); Mean Corpuscular Hemoglobin 29.6 pg (28.0-32.0); Mean Corpuscular Volume 89.2 fL (80.0-100.0); Nucleated Red Blood Cells % 0.0 %
[2025-08-25 12:42] LABS: Alanine Aminotransferase 25 U/L (7-40); Albumin 3.5 g/dL (3.2-4.8); Alkaline Phosphatase 80 U/L (46-116); Anion Gap 8 (5-15); BUN/Creatinine Ratio 17.8 (10.0-20.0); Blood Urea Nitrogen 19 mg/dL (9-23); Calcium 8.7 mg/dL (8.7-10.4); Carbon Dioxide 26 mmol/L (20-31); Chloride 101 mmol/L (98-107); Potassium 4.6 mmol/L (3.5-5.1); Total Protein 6.3 g/dL (5.7-8.2); Uric Acid 4.5 mg/dL (3.1-7.8)
[2025-08-25 13:29] LABS: Urine Protein, UAD TRACE (Negative)
[2025-08-25 13:32] LABS: Bilirubin, Total 1.5 mg/dL (0.2-1.0); Glucose 306 mg/dL (74-106); Magnesium 1.3 mg/dL (1.6-2.6); Sodium 135 mmol/L (136-145)
[2025-08-25 14:50] LABS: INR > 8.0 (0.9-1.15)
[2025-08-25 14:51] LABS: Partial Thromboplastin Time 78.8 SEC (24.5-34.5)
[2025-08-25 19:19] LABS: Bilirubin, Direct 0.4 mg/dL (<0.3); Cholesterol 140 mg/dL (< 200); HDL Cholesterol 36 mg/dL (40-59); Triglycerides 185 mg/dL (< 150)
== END 2025-08-25 15:00 | disposition home or self-care (01) ==
LOC: LAB 11:55
PROVIDERS: ATTEND Internal Medicine
DX: I13.0 Hypertensive heart and chronic kidney disease with heart failure and stage 1 through stage 4 chronic kidney disease, or unspecified chronic kidney disease (principal); E11.22 Type 2 diabetes mellitus with diabetic chronic kidney disease; N18.9 Chronic kidney disease, unspecified; I50.9 Heart failure, unspecified; E11.51 Type 2 diabetes mellitus with diabetic peripheral angiopathy without gangrene; D63.1 Anemia in chronic kidney disease; R94.5 Abnormal results of liver function studies; E78.2 Mixed hyperlipidemia; E55.9 Vitamin D deficiency, unspecified; Z79.899 Other long term (current) drug therapy
CPT/HCPCS: 36415; 80053; 80061; 80076; 81003; 82306; 82607; 83036; 83735; 84443; 84550; 85025; 85610; 85730; 87086

== ENCOUNTER 2025-10-03 10:02 | Outpatient (CLI) | payer OTHER ==
[2025-10-03 10:49] LABS: INR 2.75 (0.9-1.15); Prothrombin Time 26.4 sec (9.3-11.8)
== END 2025-10-03 17:00 | disposition home or self-care (01) ==
LOC: LAB 10:02
PROVIDERS: ATTEND Physician Assistant
DX: D68.69 Other thrombophilia (principal); Z79.01 Long term (current) use of anticoagulants
CPT/HCPCS: 36415; 85610

== ENCOUNTER 2025-10-16 12:48 | Outpatient (CLI) | payer OTHER ==
[2025-10-16 13:26] LABS: Hematocrit 40.5 % (36.0-46.0); Hemoglobin 13.5 g/dL (12.2-16.2); Mean Corpuscular Hemoglobin 29.6 pg (28.0-32.0); Mean Corpuscular Volume 88.8 fL (80.0-100.0); Nucleated Red Blood Cells % 0.0 %
[2025-10-16 13:47] LABS: Prothrombin Time 39.2 sec (9.3-11.8)
[2025-10-16 13:49] LABS: Albumin 3.8 g/dL (3.2-4.8); Alkaline Phosphatase 84 U/L (46-116); Anion Gap 6 (5-15); BUN/Creatinine Ratio 28.1 (10.0-20.0); Calcium 9.4 mg/dL (8.7-10.4); Chloride 102 mmol/L (98-107); Cholesterol 172 mg/dL (< 200); Potassium 4.7 mmol/L (3.5-5.1); Sodium 140 mmol/L (136-145); Total Protein 6.5 g/dL (5.7-8.2); Triglycerides 125 mg/dL (< 150)
[2025-10-16 13:50] LABS: Bilirubin, Direct 0.2 mg/dL (<0.3); Bilirubin, Total 0.6 mg/dL (0.2-1.0); HDL Cholesterol 52 mg/dL (40-59)
[2025-10-16 13:51] LABS: Alanine Aminotransferase 55 U/L (7-40); Blood Urea Nitrogen 25 mg/dL (9-23); Carbon Dioxide 32 mmol/L (20-31); Glucose 114 mg/dL (74-106)
[2025-10-16 15:24] LABS: INR 4.27 (0.9-1.15)
== END 2025-10-16 17:00 | disposition home or self-care (01) ==
LOC: LAB 12:48
PROVIDERS: ATTEND Specialist
DX: I10 Essential (primary) hypertension (principal); R79.1 Abnormal coagulation profile; Z79.899 Other long term (current) drug therapy
CPT/HCPCS: 36415; 80048; 80061; 80076; 83036; 84443; 85025; 85610

== ENCOUNTER 2025-10-16 18:06 | Emergency (ER) | payer OTHER ==
[~2025-10-16] VITALS: Ht 162.6 cm; Wt 74.0 kg
--- NOTE | 2025-10-16 19:07 | ED.PDOC ---
History of Present Illness HPI Comments 69-year-old female presents for evaluation for abnormal lab findings. Significant history for AFib, CAD, CHF, DM type 2, GERD, HLD, HTN, LA, pacemaker, pacemaker generator exchange, and mechanical mitral valve replacement-on warfarin. Patient reports on having blood lab work and receiving a call from facility for and abnormal INR value of 4.27, earlier, today. She comments on attempting to contact her primary care physician to no avail prior to deciding to come to the ED. She denies on having any symptoms at this time. Patient takes warfarin at various dosages throughout the week (2.5mg on Wednesdays and Fridays and 4mg on remaining days of the week). REVIEW OF SYSTEMS: General: No fever, no chills, or fatigue HEENT: No sore throat, no earache, no congestion, no neck pain. Cardiac: No chest pain. No palpitations. Lungs: No shortness of breath, no cough. GI: No nausea, no vomiting, no diarrhea, no constipation, no abdominal pain : No dysuria, frequency, or urgency. No hematuria. Musculoskeletal: No joint pain , no joint swelling, no extremity edema. Skin: No rash, no itching. Neuro: No headache, no dizziness, no weakness (And as sated in HPI) PHYSICAL EXAM: General: Awake, alert and oriented. No acute distress. Skin: Skin in warm, dry and intact without rashes or lesions. HEENT: The head is normocephalic and atraumatic. Conjunctivae are clear without exudates or hemorrhage. Sclera is non-icteric. Neck: Normal range of motion. No JVD. Cardiac: Regular rate Respiratory: No signs of respiratory distress. No Stridor. Extremities: Upper and lower extremities are atraumatic in appearance without deformity. Neurological: The patient is awake, alert and oriented to person, place, and time with normal speech. Speech is clear. There is no facial asymmetry. Psychiatric: Appropriate mood and affect. Good judgement and insight. Chief Complaint: Abnormal LAB's Time Seen by MD: 19:06 Primary Care Provider: ENA Allergies: Coded Allergies: Iodine (Verified Allergy, Intermediate, 05/10/22) Home Meds Reported Medications Cholecalciferol (D3) 25 Mcg Chw, 25 MCG PO DAILY, TAB.CHEW 04/26/25 Potassium Chloride (POTASSIUM CHLORIDE CR) 10 Meq Tb, 10 MEQ PO 2XW, TAB 04/26/25 Losartan Potassium (Losartan Potassium) 25 Mg Tab, 25 MG PO DAILY, TAB 04/26/25 Insulin Glargine (Toujeo Max Solostar) 300 Unit/Ml Inj, 30 UNIT SC HS, INJ 04/26/25 Tirzepatide (Mounjaro) 7.5 Mg/0.5 Ml Inj, 7.5 MG SC QWEEKLY, INJ 04/26/25 Insulin Lispro (Human) (Humalog) 100 Unit/Ml Inj, 14 UNIT SC TID for PER SLIDING SCALE, INJ 01/06/24 Nitroglycerin (Nitrostat) 0.4 Mg Sub, 0.4 MG SL PRN for CHEST PAIN, INJ 01/06/24 Atorvastatin Calcium (ATORVASTATIN CALCIUM) 80 Mg Tab, 1 TAB PO DAILY for HIGH CHOLESTEROL, #30 TAB 5 Refills 01/06/24 Warfarin Sodium (Warfarin Sodium) 2.5 Mg Tab, 2.5 MG PO THU,WED,THU,THU,THU for 30 Days, MG 01/06/24 Warfarin Sodium (Warfarin Sodium) 1 Mg Tab, 1 MG PO QWEEKLY for for 30 Days, MG 01/06/24 Isosorbide Mononitrate (Isosorbide Mononitrate) 10 Mg Tab, 10 MG PO BID, TAB 01/06/24 Aspirin (Aspir-Low) 81 Mg Tab, 81 MG PO DAILY, MG 01/06/24 Metoprolol Succinate (Metoprolol Succinate Er) 50 Mg Tab, 50 MG PO DAILY for 30 Days, MG 01/06/24 Gabapentin (Gabapentin) 100 Mg Cap, 1 CAP PO BID for neuropathy, #90 CAP 2 Refills 10/16/22 Omeprazole (Gnp Omeprazole) 20 Mg Tab, 1 TAB PO DAILY, #90 TAB 1 Refill 10/16/22 Oxybutynin Chloride (Ditropan Xl) 5 Mg Tab, 5 MG PO DAILY, TAB 10/16/22 Furosemide (Lasix) 40 Mg Tab, 40 MG PO DAILY for edema, TAB 10/16/22 Paroxetine HCl (Paroxetine Hydrochloride) 30 Mg Tab, 10 MG PO DAILY for anxiety, TAB 10/16/22 Mode of Arrival: Ambulatory Past Medical History PAST MEDICAL HISTORY: AFIB, CAD, CHF (Diastolic), DM (Type 2), GERD, High Lipids, HTN, [place] Surgical History: Pacemaker, Tubal Ligation Surgical History (Other): Status post mitral valve replacement (mechanical), Status post pacemaker generator exchange ([place]) RESEARCH PROGRAM ASSISTANT History: Denies all RESEARCH PROGRAM ASSISTANT Hx Family History Family History: Reviewed,noncontributory to illness Social History Smoker: Non-Smoker Alcohol: Denies ETOH Use Drugs: Denies Drug Use Lives In: Home Was a procedure done? Was a procedure done?: No Differential Dx Considerations may include: Supratherapeutic INR, bleeding, drug interaction, other X-Ray, Labs, Meds, VS Vital Signs Date Time Temp Pulse Resp B/P (MAP) Pulse Ox O2 Delivery O2 Flow Rate FiO2 10/16/25 18:08 97.8 85 16 130/95 99 97.8 Lab Test 10/16/25 18:52 Range/Units White Blood Count 4.0 L 4.4-10.8 10^3/uL Red Blood Count 4.45 4.0-5.20 10^6/uL Hemoglobin 13.3 12.2-16.2 g/dL Hematocrit 39.6 36.0-46.0 % Mean Corpuscular Volume 88.8 80.0-100.0 fL Mean Corpuscular Hemoglobin 29.9 28.0-32.0 pg Mean Corpuscular Hemoglobin Concent 33.6 32.0-36.0 g/dL Red Cell Distribution Width 14.6 H 11.8-14.3 % Platelet Count 197 140-450 10^3/uL Mean Platelet Volume 8.6 6.9-10.8 fL Neutrophils (%) (Auto) 60.5 37.0-80.0 % Lymphocytes (%) (Auto) 30.2 10.0-50.0 % Monocytes (%) (Auto) 7.5 0.0-12.0 % Eosinophils (%) (Auto) 0.3 0.0-7.0 % Basophils (%) (Auto) 1.5 0.0-2.0 % Neutrophils # (Auto) 2.4 1.6-8.6 10 ^3/uL Lymphocytes # (Auto) 1.2 0.4-5.4 10 ^3/uL Monocytes # (Auto) 0.3 0-1.3 10 ^3/uL Eosinophils # (Auto) 0 0-0.8 10 ^3/uL Basophils # (Auto) 0.1 0-0.2 10 ^3/uL Nucleated Red Blood Cells 0.1 % Prothrombin Time 43.8 H 9.3-11.8 sec Prothrombin Time INR 4.83 *H 0.9-1.15 Sodium Level 140 136-145 mmol/L Potassium Level 4.7 3.5-5.1 mmol/L Chloride Level 102 98-107 mmol/L Carbon Dioxide Level 30 20-31 mmol/L Anion Gap 8 5-15 Blood Urea Nitrogen 24 H 9-23 mg/dL Creatinine 0.93 0.550-1.02 mg/dL Glomerular Filtration Rate Calc 66 >90 mL/min BUN/Creatinine Ratio 25.8 H 10.0-20.0 Serum Glucose 196 H 74-106 mg/dL Calcium Level 8.9 8.7-10.4 mg/dL Time of 1ST Reevaluation: 19:06 Reevaluation 1ST: Unchanged Patient Education/Counseling: Need For Follow Up Family Education/Counseling: No Family Present SEPSIS Sepsis Screen Date sepsis recognized/suspect: Oct 16, 2025 Time Sepsis recognized/suspect: 1811 Recent Procedure: No On Antibiotic Therapy: No Respiratory Rate >20: No Heart Rate >90: No Temp<36 C (96.8 F) or >38.3 C: No SBP <90 or MAP <65 mmHG: No New Acute Mental Status Change: No Is the patient on CPAP, BIPAP,: No Vital Signs Date Time Temp Pulse Resp B/P (MAP) Pulse Ox O2 Delivery O2 Flow Rate FiO2 10/16/25 18:08 97.8 85 16 130/95 99 97.8 Laboratory Tests Test 10/16/25 18:52 White Blood Count 4.0 10^3/uL (4.4-10.8) L Departure 1 Departure Time of Disposition: 19:54 Impression: Primary Impression: Supratherapeutic INR Disposition: HOME / SELF CARE / HOMELESS Condition: Stable Additional Instructions: ED DISCHARGE INSTRUCTIONS Instructions: Please read all instructions provided in this packet carefully. Hold warfarin dose tomorrow (Thursday). Follow up with the your primary care provider or at the Emergency Department to have INR re-checked on Thursday. Although you have been discharged from the Emergency Department, this does not mean that you have a "clean bill of health". No definitive diagnosis for your symptoms has been made today. It is possible that you are in the process of developing a serious illness. This is why you must return to the ED without fail if any new or worsening symptoms (especially if your symptoms include chest pain, trouble breathing, abdominal pain, fever, headache, confusion, trouble seeing, or trouble walking) It is also very important that you see a primary care provider (PCP) within the next 2 days to follow up. If you are unable to get an appointment, return to the ED for re-evaluation. High INR Test Result: Care Instructions Overview You had a blood test to check how long it takes your blood to clot. This test is called a PT or prothrombin time test. The result of the test is called the INR level. A high INR level can happen when you take warfarin (Coumadin). Warfarin helps prevent blood clots. To do this, it slows the amount of time it takes for your blood to clot. This raises your INR level. The INR goal for people who take warfarin is usually from 2 to 3.5. A value higher than 3.5 increases the risk of bleeding problems. Many things can affect the way warfarin works. Some natural health products and other medicines can make warfarin work too well. That can raise the risk of bleeding. If you drink a lot of alcohol, that may raise your INR. And severe diarrhea or vomiting can also raise your INR. The best way to lower your INR will depend on several things. In some cases, the doctor may have you stop taking warfarin for a few days. You may also be given other medicines to take. You will need to be tested often to make sure your INR level is going down. You will also need to watch for signs of bleeding. The doctor has checked you carefully, but problems can develop later. If you notice any problems or new symptoms, get medical treatment right away. Follow-up care is a gallegos part of your treatment and safety. Be sure to make and go to all appointments, and call your doctor if you are having problems. It's also a good idea to know your test results and keep a list of the medicines you take. How can you care for yourself at home? Be careful with medicines and foods Don't start or stop taking any medicines, vitamins, or natural remedies unless you first talk to your doctor. Keep the amount of vitamin K in your diet about the same from day to day. Do not suddenly eat a lot more or a lot less food that is rich in vitamin K than you usually do. Vitamin K affects how warfarin works and how your blood clots. Limit your use of alcohol. Avoid bleeding by preventing falls and injuries Wear slippers or shoes with nonskid soles. Remove throw rugs and clutter. Rearrange furniture and electrical cords to keep them out of walking paths. Keep stairways, porches, and outside walkways well lit. Use night-lights in hallways and bathrooms. Be extra careful when you work with sharp tools or knives. When should you call for help? Call 911 anytime you think you may need emergency care. For example, call if: You passed out (lost consciousness). You have signs of severe bleeding, such as: A severe headache that is different from past headaches. Vomiting blood or what looks like coffee grounds. Passing maroon or very bloody stools. Call your doctor now or seek immediate medical care if: You have unexpected bleeding, including: Blood in stools or black stools that look like tar. Blood in your urine. Bruises or blood spots under the skin. You feel dizzy or lightheaded. Watch closely for changes in your health, and be sure to contact your doctor if: You do not get better as expected. Credits for High INR Test Result: Care Instructions Current as of: June 29, 2024 Author: [employer] Staff Clinical Review Board All [employer] education is reviewed by a team that includes ph ysicians, nurses, advanced practitioners, registered dieticians, and other healthcare professionals. Comments 69-year-old female who presented to the emergency department with a elevated INR. No active bleeding. Patient advised to home dose of warfarin, follow up with the primary care provider for warfarin dose adjustment. Critical Care Note Critical Care Time?: No Stability Stability form required: No Heart Score Heart Score: Heart Score Response (Comments) Value History N/A 0 EKG N/A 0 Age N/A 0 Risk Factors N/A 0 Troponin N/A 0 Total 0 I personally scribed for RUDOLPH BRADEN MD ([email or web address]) on 10/16/25 at 19:07. Electronically submitted by Keaton Lugo ([email or web address]). I personally scribed for RUDOLPH BRADEN MD ([email or web address]) on 10/16/25 at 19:32. Electronically submitted by Malron Stephens ([email or web address]). I personally scribed for RUDOLPH BRADEN MD ([email or web address]) on 10/16/25 at 20:03. Electronically submitted by Marlon Stephens ([email or web address]). RUDOLPH BRADEN MD Oct 16, 2025 19:07
[2025-10-16 19:08] LABS: Hematocrit 39.6 % (36.0-46.0); Hemoglobin 13.3 g/dL (12.2-16.2); Mean Corpuscular Hemoglobin 29.9 pg (28.0-32.0); Mean Corpuscular Volume 88.8 fL (80.0-100.0); Nucleated Red Blood Cells % 0.1 %
[2025-10-16 19:29] LABS: Chloride 102 mmol/L (98-107); Potassium 4.7 mmol/L (3.5-5.1); Sodium 140 mmol/L (136-145)
[2025-10-16 19:30] LABS: Anion Gap 8 (5-15); Calcium 8.9 mg/dL (8.7-10.4); Carbon Dioxide 30 mmol/L (20-31); Prothrombin Time 43.8 sec (9.3-11.8)
[2025-10-16 19:35] LABS: BUN/Creatinine Ratio 25.8 (10.0-20.0)
[2025-10-16 19:38] LABS: Blood Urea Nitrogen 24 mg/dL (9-23); Glucose 196 mg/dL (74-106)
[2025-10-16 20:07] LABS: INR 4.83 (0.9-1.15)
[2025-10-16 22:43] VITALS: BP 135/78; PULSE 87; RESP 20; TEMP 98.6; O2SAT 98
== END 2025-10-16 22:44 | disposition home or self-care (01) ==
LOC: ER 18:06
DX: R79.1 Abnormal coagulation profile (principal); I11.0 Hypertensive heart disease with heart failure; I50.9 Heart failure, unspecified; E11.9 Type 2 diabetes mellitus without complications; E78.5 Hyperlipidemia, unspecified; I25.2 Old myocardial infarction; I48.91 Unspecified atrial fibrillation; Z79.82 Long term (current) use of aspirin; Z79.01 Long term (current) use of anticoagulants; Z79.85 Long-term (current) use of injectable non-insulin antidiabetic drugs; Z95.0 Presence of cardiac pacemaker; Z79.899 Other long term (current) drug therapy; Z98.51 Tubal ligation status; Z95.2 Presence of prosthetic heart valve; Z88.8 Allergy status to other drugs, medicaments and biological substances
CPT/HCPCS: 36415; 80048; 85025; 85610